=== PATIENT | female | born 1980 | race Caucasian/White ===

== ENCOUNTER 2018-01-06 22:01 | Emergency (ER) | payer OTHER ==
--- NOTE | 2018-01-06 22:01 | ER Report ---
History and Physical Time Seen By MD: 22:00 HPI/ROS CHIEF COMPLAINT: Abdominal pain, chest pain, shortness of breath HISTORY OF PRESENT ILLNESS: 36-year-old female who ate at [employer] one hour prior to onset of symptoms began to have severe cramping abdominal pain with vomiting. The severe abdominal pain pain radiates into her back and between her shoulder blades. She describes shortness of breath. She does have a history of asthma. She notes no diarrhea. She states she didn't eat anything raw or unusual for her to eat at [employer]. Patient states she was in her usual state of health until before going to [employer]. REVIEW OF SYSTEMS: Respiratory: As above Cardiovascular: As above Gastrointestinal: As above Musculoskeletal: As above Allergies: Coded Allergies: Penicillins (Verified Allergy, Intermediate, RASH, 01/07/18) Home Meds Active Scripts Cefuroxime Axetil (CEFUROXIME) 500 Mg Tablet, 500 MG PO BID for infection, #14 TAB Prov:WYATT GAO Eris DO 01/06/18 Ondansetron (ZOFRAN ODT) 4 Mg Tab.rapdis, 4 MG PO every 6 hours Y for NAUSEA/ VOMITING, #10 TAB TAKE 1 TABLET BY MOUTH EVERY 12 HOURS Prov:WYATT GAO DO 01/06/18 Hydrocodone Bit/Acetaminophen (NORCO 5-325 TABLET) 1 Each Tablet, 1 EACH PO Q4H Y for PAIN, #8 TAB Prov:WYATT GAO DO 01/06/18 Reported Medications Diphenhydramine Hcl (DIPHENHYDRAMINE HCL) 25 Mg Capsule, 25 MG PO Q6-8H, CAPSULE 01/07/18 Multivitamin/Iron/Folic Acid (Centrum Adults Tablet) 18 Mg Iron-400 Mcg Tablet, 1 TAB PO QDAY 01/07/18 Ipratropium/Albuterol Sulfate (COMBIVENT RESPIMAT INHAL SPRAY) 4 Gm Aer.w.adap, 1 EACH IH QID Y for SHORTNESS OF BREATH 01/07/18 Ibuprofen (MOTRIN IB) 200 Mg Tablet, 3 TAB PO BID 01/07/18 Ranitidine Hcl (ZANTAC) 150 Mg Tablet, 150 MG PO BID, TAB 01/06/18 Escitalopram Oxalate (ESCITALOPRAM OXALATE) 10 Mg Tablet, 10 MG PO QDAY, TAB 01/06/18 Cetirizine Hcl (ZYRTEC) 10 Mg Tablet, 10 MG PO QDAY, TAB 01/06/18 Zolpidem Tartrate (AMBIEN) 10 Mg Tablet, 1 TAB PO QHS, TAB 01/06/18 Bupropion Hcl (BUPROPION HCL SR) 150 Mg Tablet.er, 150 MG PO QDAY, #10 TAB 01/06/18 Clonazepam (CLONAZEPAM) 0.5 Mg Tab.rapdis, 0.5 MG PO BID, #6 TAB 01/06/18 Norgestimate-Ethinyl Estradiol (MONONESSA) 1 Each Tablet, 1 EACH PO QDAY 01/06/18 Discontinued Reported Medications Ipratropium/Albuterol Sulfate (COMBIVENT RESPIMAT INHAL SPRAY) 4 Gm Aer.w.adap, 1 EACH IH QID 01/06/18 Fluticasone Prop 50 Mcg Ns (FLONASE 50 MCG NS) 16 Gm [place].susp, 1 SPRAY NS BID , BOT 01/06/18 Cyclobenzaprine Hcl (CYCLOBENZAPRINE HCL) 10 Mg Tablet, 10 MG PO TID, #9 TAB 01/06/18 Reviewed Nurses Notes: Yes Old Medical Records Reviewed: Yes Constitutional Vital Sign - Last 24 Hours 01/06/18 01/06/18 01/06/18 01/06/18 22:03 22:04 22:16 22:31 Temp 97.9 Pulse 82 81 76 Resp 26 B/P (MAP) 131/96 131/96 (108) Pulse Ox 90 96 93 O2 Delivery Room Air 01/06/18 01/06/18 01/06/18 01/06/18 22:46 22:51 22:56 23:11 Pulse 82 73 70 69 Pulse Ox 88 95 90 94 01/06/18 01/06/18 01/07/18 23:27 23:41 00:12 Pulse 73 85 Resp 16 B/P (MAP) 117/73 (88) 115/72 (86) Pulse Ox 90 92 O2 Delivery Room Air Physical Exam General Appearance: The patient is alert, has no immediate need for airway protection and no current signs of toxicity.. Moderate distress, vital signs stable, increased respiratory rate HEENT: Pupils equal and round no injection. TMs normal, oropharynx without redness or exudate, mucous. Membranes are moist Respiratory: Chest is non tender, lungs are clear to auscultation. Cardiac: regular rate and rhythm Gastrointestinal: Abdomen is soft mild epigastric tenderness, no rebound or guarding, no masses, bowel sounds normal. Musculoskeletal: Neck: Neck is supple and non tender. Extremities have full range of motion and are non tender. Skin: No rashes or lesions. DIFFERENTIAL DIAGNOSIS: After history and physical exam differential diagnosis was considered for abdominal pain including but not limited to appendicitis, cholecystitis, gastritis , gastroenteritis, food poisoning, viral syndrome and urinary tract infection. Medical Decision Making Data Points Result Diagram: 01/06/18221901/06/182219 Laboratory Hematology Test 01/06/18 22:20 01/06/18 23:25 Red Blood Count 4.89 M/uL (4.17-5.56) Mean Corpuscular Volume 89.1 fL (80.0-96.0) Mean Corpuscular Hemoglobin 30.8 pg (26.0-33.0) Mean Corpuscular Hemoglobin Concent 34.6 g/dL (32.0-36.0) Red Cell Distribution Width 12.3 % (11.5-14.5) Mean Platelet Volume 8.7 fL (7.2-11.1) Neutrophils (%) (Auto) 60.9 % (39.4-72.5) Lymphocytes (%) (Auto) 29.7 % (17.6-49.6) Monocytes (%) (Auto) 6.7 % (4.1-12.4) Eosinophils (%) (Auto) 1.6 % (0.4-6.7) Basophils (%) (Auto) 1.1 % (0.3-1.4) Nucleated RBC Relative Count (auto) 0.1 /100WBC Neutrophils # (Auto) 6.1 K/uL (2.0-7.4) Lymphocytes # (Auto) 3.0 K/uL (1.3-3.6) Monocytes # (Auto) 0.7 K/uL (0.3-1.0) Eosinophils # (Auto) 0.2 K/uL (0.0-0.5) Basophils # (Auto) 0.1 K/uL (0.0-0.1) Nucleated RBC Absolute Count (auto) 0.01 K/uL D-Dimer Quantitative (PE/DVT) 0.27 ug/ml (0-0.50) Sodium Level 141 mmol/L (137-145) Potassium Level 3.5 mmol/L (3.5-5.0) Chloride Level 106 mmol/L (98-107) Carbon Dioxide Level 23 mmol/L (22-31) Blood Urea Nitrogen 11 mg/dl (7-18) Creatinine 0.80 mg/dl (0.52-1.04) Glomerular Filtration Rate Calc > 60.0 Random Glucose 121 mg/dl (75-110) Calcium Level 9.3 mg/dl (8.4-10.2) Total Bilirubin 0.3 mg/dl (0.2-1.3) Aspartate Amino Transf (AST/SGOT) 59 U/L (0-35) Alanine Aminotransferase (ALT/SGPT) 37 U/L (0-56) Alkaline Phosphatase 91 U/L (0-126) Troponin I < 0.012 ng/ml Total Protein 7.0 gm/dl (6.3-8.2) Albumin 3.8 g/dl (3.5-5.0) Amylase Level 84 U/L (0-110) Lipase 238 U/L (23-300) Human Chorionic Gonadotropin, Qual Negative (NEGATIVE) Urine Color Yellow Urine Clarity Cloudy Urine pH 5.0 pH (4.8-9.5) Urine Specific [place] 1.019 Urine Protein Negative mg/dL (NEGATIVE) Urine Glucose (UA) Negative mg/dL (NEGATIVE) Urine Ketones Negative mg/dL (NEGATIVE) Urine Blood Negative (NEGATIVE) Urine Nitrite Negative (NEGATIVE) Urine Bilirubin Negative (NEGATIVE) Urine Urobilinogen Negative mg/dL (0.2-1.9) Urine Leukocyte Esterase Moderate (NEGATIVE) Urine RBC 5 /HPF (0-2/HPF) Urine WBC 104 /HPF (0-5/HPF) Urine Squamous Epithelial Cells Many /LPF (</=FEW) Urine Transitional Epithelial Cells Many /LPF (NONE-FEW) Urine Bacteria Moderate /HPF (NONE-FEW) Urine Mucus Few /HPF (NONE-FEW) Chemistry Test 01/06/18 22:20 01/06/18 23:25 White Blood Count 10.1 k/uL (4.5-11.0) Red Blood Count 4.89 M/uL (4.17-5.56) Hemoglobin 15.1 g/dL (12.0-16.0) Hematocrit 43.6 % (34.0-47.0) Mean Corpuscular Volume 89.1 fL (80.0-96.0) Mean Corpuscular Hemoglobin 30.8 pg (26.0-33.0) Mean Corpuscular Hemoglobin Concent 34.6 g/dL (32.0-36.0) Red Cell Distribution Width 12.3 % (11.5-14.5) Platelet Count 262 K/uL (150-450) Mean Platelet Volume 8.7 fL (7.2-11.1) Neutrophils (%) (Auto) 60.9 % (39.4-72.5) Lymphocytes (%) (Auto) 29.7 % (17.6-49.6) Monocytes (%) (Auto) 6.7 % (4.1-12.4) Eosinophils (%) (Auto) 1.6 % (0.4-6.7) Basophils (%) (Auto) 1.1 % (0.3-1.4) Nucleated RBC Relative Count (auto) 0.1 /100WBC Neutrophils # (Auto) 6.1 K/uL (2.0-7.4) Lymphocytes # (Auto) 3.0 K/uL (1.3-3.6) Monocytes # (Auto) 0.7 K/uL (0.3-1.0) Eosinophils # (Auto) 0.2 K/uL (0.0-0.5) Basophils # (Auto) 0.1 K/uL (0.0-0.1) Nucleated RBC Absolute Count (auto) 0.01 K/uL D-Dimer Quantitative (PE/DVT) 0.27 ug/ml (0-0.50) Glomerular Filtration Rate Calc > 60.0 Calcium Level 9.3 mg/dl (8.4-10.2) Total Bilirubin 0.3 mg/dl (0.2-1.3) Aspartate Amino Transf (AST/SGOT) 59 U/L (0-35) Alanine Aminotransferase (ALT/SGPT) 37 U/L (0-56) Alkaline Phosphatase 91 U/L (0-126) Troponin I < 0.012 ng/ml Total Protein 7.0 gm/dl (6.3-8.2) Albumin 3.8 g/dl (3.5-5.0) Amylase Level 84 U/L (0-110) Lipase 238 U/L (23-300) Human Chorionic Gonadotropin, Qual Negative (NEGATIVE) Urine Color Yellow Urine Clarity Cloudy Urine pH 5.0 pH (4.8-9.5) Urine Specific [place] 1.019 Urine Protein Negative mg/dL (NEGATIVE) Urine Glucose (UA) Negative mg/dL (NEGATIVE) Urine Ketones Negative mg/dL (NEGATIVE) Urine Blood Negative (NEGATIVE) Urine Nitrite Negative (NEGATIVE) Urine Bilirubin Negative (NEGATIVE) Urine Urobilinogen Negative mg/dL (0.2-1.9) Urine Leukocyte Esterase Moderate (NEGATIVE) Urine RBC 5 /HPF (0-2/HPF) Urine WBC 104 /HPF (0-5/HPF) Urine Squamous Epithelial Cells Many /LPF (</=FEW) Urine Transitional Epithelial Cells Many /LPF (NONE-FEW) Urine Bacteria Moderate /HPF (NONE-FEW) Urine Mucus Few /HPF (NONE-FEW) Coagulation Test 01/06/18 22:20 D-Dimer Quantitative (PE/DVT) 0.27 ug/ml Urinalysis Test 01/06/18 23:25 Urine Color Yellow Urine Clarity Cloudy Urine pH 5.0 pH (4.8-9.5) Urine Specific [place] 1.019 Urine Protein Negative mg/dL (NEGATIVE) Urine Glucose (UA) Negative mg/dL (NEGATIVE) Urine Ketones Negative mg/dL (NEGATIVE) Urine Blood Negative (NEGATIVE) Urine Nitrite Negative (NEGATIVE) Urine Bilirubin Negative (NEGATIVE) Urine Urobilinogen Negative mg/dL (0.2-1.9) Urine Leukocyte Esterase Moderate (NEGATIVE) Urine RBC 5 /HPF (0-2/HPF) Urine WBC 104 /HPF (0-5/HPF) Urine Squamous Epithelial Cells Many /LPF (</=FEW) Urine Transitional Epithelial Cells Many /LPF (NONE-FEW) Urine Bacteria Moderate /HPF (NONE-FEW) Urine Mucus Few /HPF (NONE-FEW) Microbiology Microbiology Date/Time Source Procedure Growth Status 01/06/18 00:00 Clean Catch Midstream Ur Urine Culture - Preliminary Gram Negative Jd Resulted EKG/Imaging EKG Interpretation 12 lead EK Rhythm: normal sinus rhythm [place]: normal QRS: normal ST segments: normal, no evidence of ischemia or dysrhythmia ED Course/Re-evaluation Clinical Indication for ER IV: Hydration, IV Access ED Course Patient was admitted to an examination room. H&P was done. The differential diagnoses was considered. On clinical examination. Patient brought in by ambulance complaining of severe epigastric and back pain. She is having difficulty breathing. She does have a history of asthma. She seems better after the nebulizer by EMS. She still seems quite uncomfortable. Diagnostic studies are ordered. Patient's treated with IV fluid hydration and Zofran and fentanyl 50 g. On reevaluation she still has significant discomfort. Morphine 2 mg is administered. Her urinalysis shows infection. Remainder of her diagnostic studies are unremarkable. She'll be treated with Ceftin for urinary tract infection. She is advised clear liquid diet for 24 hours. She is given prescriptions for Zofran and hydrocodone. Decision to Disposition Date: Jan 06, 2018 Decision to Disposition Time: 23:25 Depart Departure Latest Vital Signs Vital Signs Date Time Temp Pulse Resp B/P (MAP) Pulse Ox O2 Delivery O2 Flow Rate FiO2 01/07/18 00:12 85 16 115/72 (86) 92 Room Air 01/06/18 22:03 97.9 Impression: Primary Impression: Abdominal pain Additional Impressions: Food poisoning History of asthma UTI (urinary tract infection) Condition: Improved Disposition: HOME OR SELF-CARE New Scripts Cefuroxime Axetil (CEFUROXIME) 500 Mg Tablet 500 MG PO BID for infection, #14 TAB Prov: WYATT GAO DO 01/06/18 Ondansetron (ZOFRAN ODT) 4 Mg Tab.rapdis 4 MG PO every 6 hours Y for NAUSEA/VOMITING, #10 TAB TAKE 1 TABLET BY MOUTH EVERY 12 HOURS Prov: WYATT GAO DO 01/06/18 Hydrocodone Bit/Acetaminophen (NORCO 5-325 TABLET) 1 Each Tablet 1 EACH PO Q4H Y for PAIN, #8 TAB Prov: WYATT GAO DO 01/06/18 Patient Instructions: Clear Liquid Diet (ED), Food Poisoning (ED) Additional Instructions: Follow clear liquid diet for 24 hours, then advance to [place] diet, bananas, rice , applesauce and toast Use medication to control your symptoms Follow-up with your primary care if unimproved in 3-5 days. Problem Qualifiers Primary Impression: Abdominal pain Abdominal location: epigastric Qualified Codes: R10.13 - Epigastric pain Additional Impressions: Food poisoning Encounter type: initial encounter Injury intent: accidental or unintentional Qualified Codes: T62.91XA - Toxic effect of unspecified noxious substance eaten as food, accidental (unintentional), initial encounter UTI (urinary tract infection) Urinary tract infection type: acute cystitis Hematuria presence: without hematuria Qualified Codes: N30.00 - Acute cystitis without hematuria WYATT GAO DO Jan 06, 2018 22:01
[2018-01-06] MEDS ORDERED: NS(*) 0.9% 1000 ML BAG 1,000 ML IV ONE (22:06)
[2018-01-06] MEDS ORDERED: ONDANSETRON 4 MG/2 ML VIAL IVP ONE (22:10)
[2018-01-06] MEDS ORDERED: fentaNYL CITR 100 MCG/2 ML AMP IVP ONE (22:10)
[2018-01-06 22:32] LABS: PLATELET COUNT, AUTOMATED 262 K/uL (150-450)
[2018-01-06] MEDS ORDERED: NORG1TAB97 PO (22:37)
[2018-01-06] MEDS ORDERED: CYCL10TA29 PO (22:37)
[2018-01-06] MEDS ORDERED: CLON-388 PO (22:38)
[2018-01-06] MEDS ORDERED: IPRA4AER IH (22:39)
[2018-01-06] MEDS ORDERED: FLUT16SP19 NS (22:39)
[2018-01-06] MEDS ORDERED: BUPR-156 PO (22:40)
[2018-01-06] MEDS ORDERED: CETI-176 PO (22:41)
[2018-01-06] MEDS ORDERED: ZOLP-350 PO (22:41)
--- NOTE | 2018-01-06 22:41 | EKG ---
FACILITY: [facility] - [place] PATIENT NAME: LOUIS DUKES : [id number] MR: [id number] V: [id number] EXAM DATE: ORDERING PHYSICIAN: WYATT GAO TECHNOLOGIST: Javier Rosales Reason : Blood Pressure : / mmHG Vent. Rate : 076 BPM Atrial Rate : 076 BPM P-R Int : 162 ms QRS Dur : 082 ms QT Int : 418 ms P-R-T Axes : 040 050 023 degrees QTc Int : 470 ms Normal sinus rhythm T flattening consistent with inferior ischemia vs normal variant No previous ECGs available Confirmed by NIKKI MAYERS ([id number]) on 01/07/2018 6:26:43 AM Referred By: Confirmed By:NIKKI MAYERS
[2018-01-06] MEDS ORDERED: ESCI10TA8 PO (22:42)
[2018-01-06] MEDS ORDERED: RANI-366 PO (22:42)
[2018-01-06] MEDS ORDERED: MORPHINE 2 MG/ML SYR IVP ONE (22:55)
[2018-01-06] MEDS ORDERED: HYDR-4309 PO (23:29)
[2018-01-06] MEDS ORDERED: ONDA4TAB PO (23:29)
[2018-01-06] MEDS ORDERED: ONDANSETRON 4 MG ODT TH SL ONE (23:50)
[2018-01-06] MEDS ORDERED: ACET/HYDROC 5/325MG TH ER ONLY 2 TAB/BOTTLE PO ONE (23:50)
[2018-01-06] MEDS ORDERED: CEFUROXIME AXETIL 250 MG TAB PO ONE (23:50)
[2018-01-06] MEDS ORDERED: CEFU500T10 PO (23:54)
[2018-01-07 00:12] VITALS: BP 115/72
[2018-01-07] MEDS ORDERED: IBUP-1671 PO (11:55)
[2018-01-07] MEDS ORDERED: MULT-67 PO (11:55)
[2018-01-07] MEDS ORDERED: DIPH-464 PO (11:55)
[2018-01-07] MEDS ORDERED: IPRA4AER IH (11:55)
== END 2018-01-07 00:18 | disposition home or self-care (01) ==
LOC: ER 22:15
DX: N30.00 Acute cystitis without hematuria (principal); T62.91XA Toxic effect of unspecified noxious substance eaten as food, accidental (unintentional), initial encounter; J45.909 Unspecified asthma, uncomplicated; B96.20 Unspecified Escherichia coli [E. coli] as the cause of diseases classified elsewhere
CPT/HCPCS: 81001; 82150; 83690; 84484; 84703; 85025; 85379; 87077; 87088; 87186; 93005; 99283; J2270; J2405; J3010; J7030; S0119; 82040; 82247; 82310; 82374; 82435; 82565; 82947; 84075; 84132; 84155; 84295; 84450; 84460; 84520

== ENCOUNTER → 2018-01-06 | Outpatient (CLI) | payer OTHER ==
[~2018-01-06] MED LIST: BUPR-156 PO; CEFU500T10 PO; CETI-176 PO; CLON-388 PO; CYCL10TA29 PO; DIPH-464 PO; ESCI10TA8 PO; FLUT16SP19 NS; HYDR-4309 PO; IBUP-1671 PO; IPRA4AER IH; KET10 PO; MULT-67 PO; NORG1TAB97 PO; ONDA4TAB PO; RANI-366 PO; ZOLP-350 PO
[2018-01-07 11:57] VITALS: BMI 35.4
== END ==
LOC: AMB 21:38
PROVIDERS: ATTEND Nurse Practitioner
DX: R06.02 Shortness of breath (principal)
CPT/HCPCS: A0425; A0427

== ENCOUNTER 2018-01-07 07:46 | Inpatient (IN) | payer OTHER ==
[~2018-01-07] VITALS: Ht 160 cm; Wt 93.1 kg
[~2018-01-07 07:46] MED LIST changes: -DIPH-464 PO; -IBUP-1671 PO; -KET10 PO; -MULT-67 PO
--- NOTE | 2018-01-07 07:50 | ER Report ---
History and Physical Time Seen By MD: 07:48 HPI/ROS CHIEF COMPLAINT: Dyspnea HISTORY OF PRESENT ILLNESS: Patient is a 37-year-old female with past medical history for asthma who was seen in the emergency department yesterday evening complaining of abdominal pain after eating [employer]. She was found to have lupus and bacteria on her urinalysis was started on cephalexin for UTI. As well as Zofran and pain medication for abdominal pain. She returns to the emergency department today complaining of shortness of breath. Patient states she used her inhaler just prior to arrival to the emergency department. She states that the shortness of breath is feeling better but she is feeling cramping along her upper abdomen as well as along her rib cage. She denies any diarrhea she states that she only vomited last night. REVIEW OF SYSTEMS: Constitutional: No fever, no chills. Eyes: No discharge. ENT: No sore throat. Cardiovascular: No chest pain, no palpitations. Respiratory: Dyspnea, no cough Gastrointestinal: Epigastric abdominal cramping with nausea and vomiting last evening reports no diarrhea Genitourinary: No hematuria. Musculoskeletal: No back pain. Skin: No rashes. Neurological: No headache. Allergies: Coded Allergies: Penicillins (Verified Allergy, Intermediate, RASH, 01/07/18) Home Meds Active Scripts Cefuroxime Axetil (CEFUROXIME) 500 Mg Tablet, 500 MG PO BID for infection, #14 TAB Prov:WYATT GAO DO 01/06/18 Ondansetron (ZOFRAN ODT) 4 Mg Tab.rapdis, 4 MG PO every 6 hours Y for NAUSEA/ VOMITING, #10 TAB TAKE 1 TABLET BY MOUTH EVERY 12 HOURS Prov:WYATT GAO DO 01/06/18 Hydrocodone Bit/Acetaminophen (NORCO 5-325 TABLET) 1 Each Tablet, 1 EACH PO Q4H Y for PAIN, #8 TAB Prov:WYATT GAO DO 01/06/18 Reported Medications Diphenhydramine Hcl (DIPHENHYDRAMINE HCL) 25 Mg Capsule, 25 MG PO Q6-8H, CAPSULE 01/07/18 Multivitamin/Iron/Folic Acid (Centrum Adults Tablet) 18 Mg Iron-400 Mcg Tablet, 1 TAB PO QDAY 01/07/18 Ipratropium/Albuterol Sulfate (COMBIVENT RESPIMAT INHAL SPRAY) 4 Gm Aer.w.adap, 1 EACH IH QID Y for SHORTNESS OF BREATH 01/07/18 Ibuprofen (MOTRIN IB) 200 Mg Tablet, 3 TAB PO BID 01/07/18 Ranitidine Hcl (ZANTAC) 150 Mg Tablet, 150 MG PO BID, TAB 01/06/18 Escitalopram Oxalate (ESCITALOPRAM OXALATE) 10 Mg Tablet, 10 MG PO QDAY, TAB 01/06/18 Cetirizine Hcl (ZYRTEC) 10 Mg Tablet, 10 MG PO QDAY, TAB 01/06/18 Zolpidem Tartrate (AMBIEN) 10 Mg Tablet, 1 TAB PO QHS, TAB 01/06/18 Bupropion Hcl (BUPROPION HCL SR) 150 Mg Tablet.er, 150 MG PO QDAY, #10 TAB 01/06/18 Clonazepam (CLONAZEPAM) 0.5 Mg Tab.rapdis, 0.5 MG PO BID, #6 TAB 01/06/18 Norgestimate-Ethinyl Estradiol (MONONESSA) 1 Each Tablet, 1 EACH PO QDAY 01/06/18 Discontinued Reported Medications Ipratropium/Albuterol Sulfate (COMBIVENT RESPIMAT INHAL SPRAY) 4 Gm Aer.w.adap, 1 EACH IH QID 01/06/18 Fluticasone Prop 50 Mcg Ns (FLONASE 50 MCG NS) 16 Gm [place].susp, 1 SPRAY NS BID , BOT 01/06/18 Cyclobenzaprine Hcl (CYCLOBENZAPRINE HCL) 10 Mg Tablet, 10 MG PO TID, #9 TAB 01/06/18 Past Medical/Surgical History History of asthma history of GERD Hx Substance Use Disorder: No Hx Alcohol Use: No Constitutional Vital Sign - Last 24 Hours 01/07/18 01/07/18 01/07/18 01/07/18 07:50 07:50 08:00 08:16 Temp 97.9 Pulse 73 65 Resp 20 11 B/P (MAP) 117/106 (110) 117/106 102/61 (75) Pulse Ox 97 100 O2 Delivery Room Air 01/07/18 01/07/18 01/07/18 01/07/18 08:30 08:46 08:51 09:00 Pulse 71 62 Resp 10 10 B/P (MAP) 111/55 (73) 107/64 (78) Pulse Ox 95 94 401/07/18 01/07/18 01/07/18 09:21 09:30 09:51 10:00 Pulse 55 82 Resp 18 15 B/P (MAP) 120/75 (90) 107/54 (71) Pulse Ox 96 89 01/07/18 01/07/18 01/07/18 10:29 10:34 11:00 Pulse 68 B/P (MAP) 115/83 (94) 115/78 (90) Pulse Ox 96 Intake and Output 01/07/18 01/07/18 01/08/18 15:00 23:00 07:00 Intake Total 1050 ml Balance 1050 ml Physical Exam General/Constitutional: Patient is awake, alert, nontoxic and in no acute respiratory distress. Head: Normocephalic and atraumatic. Eyes: Conjunctival clear, sclera anicteric Nares: No rhinorrhea or bleeding. Oropharyngeal: Mucous membranes are moist. Neck: Supple, no adenopathy. Cardiovascular: Heart is regular rate and rhythm without audible murmurs, rubs or gallops. Pulmonary: Lungs are clear to auscultation bilaterally. There are no wheezes, rales, or rhonchi. Chest rise is symmetrical Abdomen: Soft, nontender, no guarding or peritoneal signs. Extremities: No gross deformities, No peripheral cyanosis. Able to move all 4 extremities. Neuro: Alert and oriented X3, Skin: No rashes, skin is warm dry and well perfused. Medical Decision Making Data Points Result Diagram: 01/07/18 0816 01/07/18 0816 Laboratory Hematology Test 01/07/18 08:16 Red Blood Count 4.72 M/uL (4.17-5.56) Mean Corpuscular Volume 89.2 fL (80.0-96.0) Mean Corpuscular Hemoglobin 31.8 pg (26.0-33.0) Mean Corpuscular Hemoglobin Concent 35.7 g/dL (32.0-36.0) Red Cell Distribution Width 12.4 % (11.5-14.5) Mean Platelet Volume 8.9 fL (7.2-11.1) Neutrophils (%) (Auto) 71.9 % (39.4-72.5) Lymphocytes (%) (Auto) 18.2 % (17.6-49.6) Monocytes (%) (Auto) 8.1 % (4.1-12.4) Eosinophils (%) (Auto) 1.2 % (0.4-6.7) Basophils (%) (Auto) 0.6 % (0.3-1.4) Nucleated RBC Relative Count (auto) 0.0 /100WBC Neutrophils # (Auto) 7.9 K/uL (2.0-7.4) Lymphocytes # (Auto) 2.0 K/uL (1.3-3.6) Monocytes # (Auto) 0.9 K/uL (0.3-1.0) Eosinophils # (Auto) 0.1 K/uL (0.0-0.5) Basophils # (Auto) 0.1 K/uL (0.0-0.1) Nucleated RBC Absolute Count (auto) 0.00 K/uL Sodium Level 144 mmol/L (137-145) Potassium Level 3.2 mmol/L (3.5-5.0) Chloride Level 107 mmol/L (98-107) Carbon Dioxide Level 20 mmol/L (22-31) Blood Urea Nitrogen 7 mg/dl (7-18) Creatinine 0.70 mg/dl (0.52-1.04) Glomerular Filtration Rate Calc > 60.0 Random Glucose 109 mg/dl (75-110) Calcium Level 8.9 mg/dl (8.4-10.2) Total Bilirubin 0.5 mg/dl (0.2-1.3) Aspartate Amino Transf (AST/SGOT) 100 U/L (0-35) Alanine Aminotransferase (ALT/SGPT) 70 U/L (0-56) Alkaline Phosphatase 76 U/L (0-126) Total Protein 6.8 gm/dl (6.3-8.2) Albumin 3.7 g/dl (3.5-5.0) Lipase 41078 U/L (23-300) Human Chorionic Gonadotropin, Qual Negative (NEGATIVE) Chemistry Test 01/07/18 08:16 White Blood Count 11.0 k/uL (4.5-11.0) Red Blood Count 4.72 M/uL (4.17-5.56) Hemoglobin 15.0 g/dL (12.0-16.0) Hematocrit 42.1 % (34.0-47.0) Mean Corpuscular Volume 89.2 fL (80.0-96.0) Mean Corpuscular Hemoglobin 31.8 pg (26.0-33.0) Mean Corpuscular Hemoglobin Concent 35.7 g/dL (32.0-36.0) Red Cell Distribution Width 12.4 % (11.5-14.5) Platelet Count 244 K/uL (150-450) Mean Platelet Volume 8.9 fL (7.2-11.1) Neutrophils (%) (Auto) 71.9 % (39.4-72.5) Lymphocytes (%) (Auto) 18.2 % (17.6-49.6) Monocytes (%) (Auto) 8.1 % (4.1-12.4) Eosinophils (%) (Auto) 1.2 % (0.4-6.7) Basophils (%) (Auto) 0.6 % (0.3-1.4) Nucleated RBC Relative Count (auto) 0.0 /100WBC Neutrophils # (Auto) 7.9 K/uL (2.0-7.4) Lymphocytes # (Auto) 2.0 K/uL (1.3-3.6) Monocytes # (Auto) 0.9 K/uL (0.3-1.0) Eosinophils # (Auto) 0.1 K/uL (0.0-0.5) Basophils # (Auto) 0.1 K/uL (0.0-0.1) Nucleated RBC Absolute Count (auto) 0.00 K/uL Glomerular Filtration Rate Calc > 60.0 Calcium Level 8.9 mg/dl (8.4-10.2) Total Bilirubin 0.5 mg/dl (0.2-1.3) Aspartate Amino Transf (AST/SGOT) 100 U/L (0-35) Alanine Aminotransferase (ALT/SGPT) 70 U/L (0-56) Alkaline Phosphatase 76 U/L (0-126) Total Protein 6.8 gm/dl (6.3-8.2) Albumin 3.7 g/dl (3.5-5.0) Lipase 20370 U/L (23-300) Human Chorionic Gonadotropin, Qual Negative (NEGATIVE) EKG/Imaging Imaging Gallbladder ultrasound shows cholelithiasis without evidence of cholecystitis. No ductal dilatation is noted EXAM DATE: ORDERING PHYSICIAN: DEVI URRUTIA TECHNOLOGIST: Location: [facility] - [place] Patient: Mariposa Juarez : 1980 Visit/Account:[id number] Date of Sevice: 01/07/2018 ABDOMEN W W/O CONTRAST HISTORY: pancreatitis Additional history: Markedly elevated lipase TECHNIQUE: Axial imaging performed from the lung bases to the iliac crest with and without IV contrast. Coronal and sagittal reformatting also performed. One of the following dose optimization techniques was utilized in the performance of this exam: Automated exposure control; adjustment of the mA and/or kV according to the patient's size; or use of an iterative reconstruction technique. Specific details can be referenced in the facility's radiology CT exam operational policy. Contrast: 100 mL [id number] COMPARISON: Right upper quadrant ultrasound same date which demonstrated cholelithiasis but no biliary duct dilatation. Pancreas unremarkable by ultrasound. FINDINGS: Visualized lung bases: Negative. Hepatobiliary: Liver appears normal. Multiple small stones are seen in the gallbladder which is nondistended. There is no evidence of biliary ductal distention. No intraductal stones are identified. CT, however, is relatively insensitive for gallstones. Spleen: Negative. Adrenals: Negative. Pancreas: The pancreas demonstrates homogenous enhancement. Despite labs indicating pancreatitis there are no morphologic changes and there is no evidence of peripancreatic fat stranding or peripancreatic fluid. Kidneys and visualized portion of ureters: Negative. Visualized GI: Visualized portions of the GI tract normal. Vessels/spaces/nodes: Negative. Bones/soft tissues: Negative. Additional findings: None pertinent. IMPRESSION: Cholelithiasis. Examination otherwise unremarkable. Despite labs consistent with pancreatitis and there is no evidence of morphologic changes and pancreas demonstrates normal parenchymal enhancement. Report Dictated By: Baudilio Paniagua MD at 01/07/2018 10:40 AM Report E-Signed By: Baudilio Paniagua MD at 01/07/2018 10:50 AM ED Course/Re-evaluation Clinical Indication for ER IV: Hydration, IV Access ED Course Patient with abdominal cramping shortness of breath currently feels improved as patient took her inhaler just prior to arrival. Plan at this time will be IV hydration we will recheck blood work including CBC CMP and lipase. We will give him sit IV along with Bentyl for antispasmodic effects. 01/07/2018 10:36:59 am patient with elevation in LFTs and lipase from yesterday. Lipase is risen from 259 to just over 13,000. Plan at this time will be gallbladder ultrasound and CT scan of the abdomen with and without contrast to evaluate the pancreas. Patient will be kept nothing by mouth. Patient feeling somewhat improved but still having epigastric discomfort with deep inspiration Re-evaluation 01/07/2018 8:41:24 am patient reevaluated nausea has improved she still feeling as if she "can't take a deep breath. White count is unremarkable; I am awaiting the remaining electrolytes. Decision to Disposition Date: Jan 07, 2018 Decision to Disposition Time: 11:08 Depart Departure Latest Vital Signs Vital Signs Date Time Temp Pulse Resp B/P (MAP) Pulse Ox O2 Delivery O2 Flow Rate FiO2 01/07/18 11:00 115/78 (90) 01/07/18 10:34 68 96 01/07/18 09:51 15 01/07/18 07:50 97.9 Room Air Impression: Primary Impression: Acute pancreatitis Condition: Condition Unchanged Disposition: Admitted from ER (to E[facility] Hager) Problem Qualifiers Primary Impression: Acute pancreatitis Pancreatitis type: unspecified pancreatitis type Acute pancreatitis complication: unspecified Qualified Codes: K85.90 - Acute pancreatitis without necrosis or infection, unspecified DEVI URRUTIA MD Jan 07, 2018 07:50
[2018-01-07] MEDS ORDERED: NS(*) 0.9% 1000 ML BAG 1,000 ML IV ONE (08:05)
[2018-01-07] MEDS ORDERED: DICYCLOMINE HCL 10 MG CAP PO ONE (08:05)
[2018-01-07] MEDS ORDERED: FAMOTIDINE(*) 20MG/50ML PREMIX 50 ML IVPB ONE (08:05)
[2018-01-07 08:28] LABS: PLATELET COUNT, AUTOMATED 244 K/uL (150-450)
[2018-01-07] MEDS ORDERED: IOPAMIDOL 76% 100 ML INFUS BTL 100 ML ONE (09:18)
[2018-01-07] MEDS ORDERED: NS 0.9% 150 ML BAG 150 ML ONE (09:19)
--- NOTE | 2018-01-07 10:30 | RADIOLOGY IMAGING REPORT ---
FACILITY: [facility] PATIENT NAME: Mariposa Juarez : 1980 MR: [id number] V: [id number] EXAM DATE: ORDERING PHYSICIAN: DEVI URRUTIA TECHNOLOGIST: Location: [facility] Patient: Mariposa Juarez : 1980 Visit/Account:[id number] Date of Sevice: 01/07/2018 GALLBLADDER HISTORY: ruq pain/elevated lft's ADDITIONAL HISTORY: Lipase 13,000 COMPARISON: None. FINDINGS: Liver: Negative. Gallbladder: Multiple stones are seen layering dependently in the gallbladder. Gallbladder wall is un remarkable. Negative sonographic Maxwell's sign. Common duct: 3.7 mm diameter. Pancreas: Pancreas is unremarkable in appearance. I would caution, however, the ultrasound is insensi tive for uncomplicated pancreatitis. Right kidney: 10.2 cm in length morphologically unremarkable. Upper abdominal aorta and IVC: Patent. Ascites: None visualized. IMPRESSION: Cholelithiasis without sonographic evidence of cholecystitis. No evidence of biliary ductal dilatatio n. Exam otherwise unremarkable. Report Dictated By: Baudilio Paniagua MD at 01/07/2018 10:21 AM Report E-Signed By: Baudilio Paniagua MD at 01/07/2018 10:25 AM WSN:[id number]
[2018-01-07] MEDS ORDERED: D5 1/2 NS(*) 1000 ML BAG 1,000 ML IV ONE (10:35)
--- NOTE | 2018-01-07 10:54 | RADIOLOGY IMAGING REPORT ---
FACILITY: [facility] [place] PATIENT NAME: Mariposa Juarez : 1980 MR: [id number] V: [id number] EXAM DATE: ORDERING PHYSICIAN: DEVI URRUTIA TECHNOLOGIST: Location: [facility] Patient: Mariposa Juarez : 1980 Visit/Account:[id number] Date of Sevice: 01/07/2018 ABDOMEN W W/O CONTRAST HISTORY: pancreatitis Additional history: Markedly elevated lipase TECHNIQUE: Axial imaging performed from the lung bases to the iliac crest with and without IV contr ast. Coronal and sagittal reformatting also performed. One of the following dose optimization techn iques was utilized in the performance of this exam: Automated exposure control; adjustment of the mA and/or kV according to the patient's size; or use of an iterative reconstruction technique. Specifi c details can be referenced in the facility's radiology CT exam operational policy. Contrast: 100 mL Isovue-370 COMPARISON: Right upper quadrant ultrasound same date which demonstrated cholelithiasis but no bilia ry duct dilatation. Pancreas unremarkable by ultrasound. FINDINGS: Visualized lung bases: Negative. Hepatobiliary: Liver appears normal. Multiple small stones are seen in the gallbladder which is nond istended. There is no evidence of biliary ductal distention. No intraductal stones are identified. CT , however, is relatively insensitive for gallstones. Spleen: Negative. Adrenals: Negative. Pancreas: The pancreas demonstrates homogenous enhancement. Despite labs indicating pancreatitis the re are no morphologic changes and there is no evidence of peripancreatic fat stranding or peripancrea tic fluid. Kidneys and visualized portion of ureters: Negative. Visualized GI: Visualized portions of the GI tract normal. Vessels/spaces/nodes: Negative. Bones/soft tissues: Negative. Additional findings: None pertinent. IMPRESSION: Cholelithiasis. Examination otherwise unremarkable. Despite labs consistent with pancreatitis and the re is no evidence of morphologic changes and pancreas demonstrates normal parenchymal enhancement. Report Dictated By: Baudilio Paniagua MD at 01/07/2018 10:40 AM Report E-Signed By: Baudilio Paniagua MD at 01/07/2018 10:50 AM WSN:[id number]
[2018-01-07 11:35] VITALS: BP 107/74
[2018-01-07] MEDS ORDERED: DIPH-464 PO (11:55)
[2018-01-07] MEDS ORDERED: IBUP-1671 PO (11:55)
[2018-01-07] MEDS ORDERED: MULT-67 PO (11:55)
[2018-01-07] MEDS ORDERED: IPRA4AER IH (11:55)
[2018-01-07 11:57] VITALS: Ht 160 cm; Wt 93.1 kg
--- NOTE | 2018-01-07 12:04 | Medical Nutrition Therapy ---
Nutrition Anthropometrics Height (Inches): 63.00 Height (Calculated Centimeters: 160.492471 Weight (Pounds): 200 Weight (Calculated Kilograms): 90.718 BMI Calculated: 35.42 Rm Nutrition Score: Rm Nutrition Risk Score: Dietary Referral Nutrition Risk Factors: Nutrition Risk Comment: Physical Findings Physical Appearance: Obese BMI 30-39 Skin Appearance Skin Appearance: Edema Edema Location Modifier: Edema Location: Type of Edema: Degree of Edema: Gastrointestinal Symptoms GI Symtoms: Tube Present: Bowel Sounds: Recent Bowel Pattern: Stool Characteristics: Nutrition/Food History No Significant Nutr. HX Nutritional Diagnosis Nutritional Risk Acuity 2: Pancreatitis Past Medical History: Asthma, GERD, PTSD Nutritional Acuity: 2-Moderate Nutrition Diagnosis: Altered GI Function Nutrition Etiology: Physiological Causes Nutrition Problem/Etiology/Sym: Altered Gastrointestinal (GI) Function related to compromised exocrine function of related GI organs, e.g., pancreas [place] [address] [place] admit. Energy Requirement: 2200 ([place] Landry-St Jeor: Actual BW X 1.4) Protein Requirement: 72 (Actual BW Kg X .8) Fluid Requirement: 2200 Diet Type: NPO (Nothing by Mouth) Nutrition Intervention: Incr diet as tolerated Nutrition Monitoring & Eval Nutrition Goals: Eat 50-100% Meal RD Patient Assessment Time: [address] Assessment Type: RD Assessment Patient Nutrition Acuity: 2-Moderate Follow Up Date: Jan 09, 2018 Nutritional Comment: Pt admitted for pancreatitis. Lipase 36021, High AST/ALT, Low K+/CO2. Class II obesity with BMI of 35.4. Pt NPO at present. Follow clinical progression and diet changes, labs, etc. MARISSA FRANCE Jan 07, 2018 12:04
[2018-01-07] MEDS ORDERED: NS(*) 0.9% 1000 ML BAG 1,000 ML IV PRN (12:29)
[2018-01-07] MEDS ORDERED: HYDROmorphone PCA 6 MG/30 ML IV PRN (12:30)
[2018-01-07] MEDS ORDERED: cefTRIAXone 1 GM VIAL IVP SCH (12:30)
[2018-01-07] MEDS ORDERED: LORazepam 2 MG/ML VIAL IVP PRN (12:30)
[2018-01-07] MEDS ORDERED: COMBIVENT 4 GR INHALER IH PRN (12:30)
--- NOTE | 2018-01-07 12:50 | History & Physical ---
History of Present Illness Chief Complaint Abdominal pain, nausea, and vomiting History of Present Illness 37yo female with PMHx significant for PTSD, depression, GERD, chronic back pain. She reports onset of upper abdominal pain with associated radiation into her mid-back and nausea with vomiting. She states it began shortly after eating tempura lobster at local [employer] restaurant. She was seen in the ER at that time and symptoms had improved. She was found to have probable UTI and started on oral Ceftin. She was sent home, but symptoms returned with even more severity within a few hours. She was re-evaluated and found to have elevated lipase ( normal earlier). Her CT scan did not show significant inflammatory changes at this time. No ductal dilation or common duct stone was seen. GB ultrasound was similar (cholelithiasis but no evidence of cholecystitis). She does not drink alcohol to any extent ("maybe once every 3 months") and none recently. She does recall a few similar, but less severe episodes over the past several years. She was recommended for admission. History Problems: (1) GERD (gastroesophageal reflux disease) Status: Chronic (2) PTSD (post-traumatic stress disorder) Status: Chronic (3) Chronic back pain (4) Depression Status: Chronic Home Meds Active Scripts Cefuroxime Axetil (CEFUROXIME) 500 Mg Tablet, 500 MG PO BID for infection, #14 TAB Prov:WYATT GAO DO 01/06/18 Ondansetron (ZOFRAN ODT) 4 Mg Tab.rapdis, 4 MG PO every 6 hours Y for NAUSEA/ VOMITING, #10 TAB TAKE 1 TABLET BY MOUTH EVERY 12 HOURS Prov:WYATT GAO 01/06/18 Hydrocodone Bit/Acetaminophen (NORCO 5-325 TABLET) 1 Each Tablet, 1 EACH PO Q4H Y for PAIN, #8 TAB Prov:WYATT GAO DO 01/06/18 Reported Medications Diphenhydramine Hcl (DIPHENHYDRAMINE HCL) 25 Mg Capsule, 25 MG PO Q6-8H, CAPSULE 01/07/18 Multivitamin/Iron/Folic Acid (Centrum Adults Tablet) 18 Mg Iron-400 Mcg Tablet, 1 TAB PO QDAY 01/07/18 Ipratropium/Albuterol Sulfate (COMBIVENT RESPIMAT INHAL SPRAY) 4 Gm Aer.w.adap, 1 EACH IH QID Y for SHORTNESS OF BREATH 01/07/18 Ibuprofen (MOTRIN IB) 200 Mg Tablet, 3 TAB PO BID 01/07/18 Ranitidine Hcl (ZANTAC) 150 Mg Tablet, 150 MG PO BID, TAB 01/06/18 Escitalopram Oxalate (ESCITALOPRAM OXALATE) 10 Mg Tablet, 10 MG PO QDAY, TAB 01/06/18 Cetirizine Hcl (ZYRTEC) 10 Mg Tablet, 10 MG PO QDAY, TAB 01/06/18 Zolpidem Tartrate (AMBIEN) 10 Mg Tablet, 1 TAB PO QHS, TAB 01/06/18 Bupropion Hcl (BUPROPION HCL SR) 150 Mg Tablet.er, 150 MG PO QDAY, #10 TAB 01/06/18 Clonazepam (CLONAZEPAM) 0.5 Mg Tab.rapdis, 0.5 MG PO BID, #6 TAB 01/06/18 Norgestimate-Ethinyl Estradiol (MONONESSA) 1 Each Tablet, 1 EACH PO QDAY 01/06/18 Discontinued Reported Medications Ipratropium/Albuterol Sulfate (COMBIVENT RESPIMAT INHAL SPRAY) 4 Gm Aer.w.adap, 1 EACH IH QID 01/06/18 Fluticasone Prop 50 Mcg Ns (FLONASE 50 MCG NS) 16 Gm Starks.susp, 1 SPRAY NS BID , BOT 01/06/18 Cyclobenzaprine Hcl (CYCLOBENZAPRINE HCL) 10 Mg Tablet, 10 MG PO TID, #9 TAB 01/06/18 Allergies: Coded Allergies: Penicillins (Verified Allergy, Intermediate, RASH, 01/07/18) Patient History: Hypertension MOTHER Other Social/Family Hx She lives with her significant other. No children. She receives disability through [employer] system. Hx Smoking: No Hx Alcohol Use: Yes (once every three months/none recently) Alcohol Used: Liquor Hx Substance Use Disorder: No Review of Systems Constitutional: No Fever, No Chills, No Night Sweats Neurological: No Syncope, No Confusion, No Weakness Eyes: No Vision Change, No Loss of Vision ENT: No Hearing Loss, No Sinus Congestion, No Sore Throat Cardiovascular: No Chest Pain, No Palpitations, No Orthostatic Hypotension Respiratory: No Shortness of Breath, No Cough, No Wheezing Gastrointestinal: Nausea, Vomiting, Diarrhea, No Hematemesis, Hematochezia (a bloody stool several days ago - returned to normal) Genitourinary: No Dysuria, No Hematuria Musculoskeletal: Pain Psychiatric: Depression, Anxiety Exam Vital Signs Vital Signs Date Time Temp Pulse Resp B/P (MAP) Pulse Ox O2 Delivery O2 Flow Rate FiO2 01/07/18 11:35 98.1 54 16 107/74 (85) 94 Room Air General Appearance: Alert, Awake Neuro: No Gross deficits Eyes: PERRLA, Other (sclera anicteric) ENT: Oropharynx Clear Neck: No Masses Cardiovascular: Regular Rate and Rhythm, No Edema, No JVD Respiratory: Clear to Auscultation Chest: No Tenderness GI: Other (soft/BS present/tender over upper abdomen/no guarding or rebound) : No CVA Tenderness Lymph: No Adenopathy Extremities: Warm, Perfused Integumentary: Skin Intact without Lesion / Mass Psych: Alert & Oriented X3 Medical Decision Making Data Points Result Diagram: 01/07/18 0816 01/07/18 0816 Item Value Date Time Human Chorionic Gonadotropin, Qual Negative 01/07/18 0816 Lipase 81600 U/L H 01/07/18 0816 Albumin 3.7 g/dl 01/07/18 0816 Total Protein 6.8 gm/dl 01/07/18 0816 Alkaline Phosphatase 76 U/L 01/07/18 0816 Alanine Aminotransferase (ALT/SGPT) 70 U/L H 01/07/18 0816 Aspartate Amino Transf (AST/SGOT) 100 U/L H 01/07/18 0816 Total Bilirubin 0.5 mg/dl 01/07/18 0816 Calcium Level 8.9 mg/dl 01/07/18 0816 Troponin I < 0.012 ng/ml 01/06/18 2220 Lipase 238 U/L 01/06/18 2220 Amylase Level 84 U/L 01/06/18 2220 Albumin 3.8 g/dl 01/06/18 2220 Total Protein 7.0 gm/dl 01/06/18 2220 Alkaline Phosphatase 91 U/L 01/06/18 2220 Alanine Aminotransferase (ALT/SGPT) 37 U/L 01/06/18 2220 Aspartate Amino Transf (AST/SGOT) 59 U/L H 01/06/18 2220 Total Bilirubin 0.3 mg/dl 01/06/18 2220 Calcium Level 9.3 mg/dl 01/06/182219 D-Dimer Quantitative (PE/DVT) 0.27 ug/ml 01/06/182219 Urine Color Yellow 01/06/182324 Urine Clarity Cloudy 01/06/182324 Urine pH 5.0 pH 01/06/182324 Urine Specific Glasco 1.019 01/06/182324 Urine Protein Negative mg/dL 01/06/182324 Urine Glucose (UA) Negative mg/dL 01/06/182324 Urine Ketones Negative mg/dL 01/06/182324 Urine Blood Negative 01/06/182324 Urine Nitrite Negative 01/06/182324 Urine Bilirubin Negative 01/06/182324 Urine Urobilinogen Negative mg/dL 01/06/182324 Urine Leukocyte Esterase Moderate H 01/06/182324 Urine RBC 5 /HPF 01/06/182324 Urine WBC 104 /HPF 01/06/182324 Urine Squamous Epithelial Cells Many /LPF H 01/06/182324 Urine Transitional Epithelial Cells Many /LPF H 01/06/182324 Urine Bacteria Moderate /HPF H 01/06/182324 Urine Mucus Few /HPF 01/06/182324 EKG / Imaging Imaging PATIENT NAME: Mariposa Juarez : 1980 MR: [id number] V: [id number] EXAM DATE: ORDERING PHYSICIAN: DEVI URRUTIA TECHNOLOGIST: Location: [facility] [place] Patient: Mariposa Juarez : 1980 Visit/Account:[id number] Date of Sevice: 01/07/2018 ABDOMEN W W/O CONTRAST HISTORY: pancreatitis Additional history: Markedly elevated lipase TECHNIQUE: Axial imaging performed from the lung bases to the iliac crest with and without IV contrast. Coronal and sagittal reformatting also performed. One of the following dose optimization techniques was utilized in the performance of this exam: Automated exposure control; adjustment of the mA and/or kV according to the patient's size; or use of an iterative reconstruction technique. Specific details can be referenced in the facility's radiology CT exam operational policy. Contrast: 100 mL Isovue-370 COMPARISON: Right upper quadrant ultrasound same date which demonstrated cholelithiasis but no biliary duct dilatation. Pancreas unremarkable by ultrasound. FINDINGS: Visualized lung bases: Negative. Hepatobiliary: Liver appears normal. Multiple small stones are seen in the gallbladder which is nondistended. There is no evidence of biliary ductal distention. No intraductal stones are identified. CT, however, is relatively insensitive for gallstones. Spleen: Negative. Adrenals: Negative. Pancreas: The pancreas demonstrates homogenous enhancement. Despite labs indicating pancreatitis there are no morphologic changes and there is no evidence of peripancreatic fat stranding or peripancreatic fluid. Kidneys and visualized portion of ureters: Negative. Visualized GI: Visualized portions of the GI tract normal. Vessels/spaces/nodes: Negative. Bones/soft tissues: Negative. Additional findings: None pertinent. IMPRESSION: Cholelithiasis. Examination otherwise unremarkable. Despite labs consistent with pancreatitis and there is no evidence of morphologic changes and pancreas demonstrates normal parenchymal enhancement. Report Dictated By: Baudilio Paniagua MD at 01/07/2018 10:40 AM Report E-Signed By: Baudilio Paniagua MD at 01/07/2018 10:50 AM WSN:[id number] PATIENT NAME: Mariposa Juarez : 1980 MR: [id number] V: [id number] EXAM DATE: [id number] ORDERING PHYSICIAN: DEVI URRUTIA TECHNOLOGIST: Location: [facility] [place] Patient: Mariposa Juarez : 1980 Visit/Account:[id number] Date of Sevice: 01/07/2018 GALLBLADDER HISTORY: ruq pain/elevated lft's ADDITIONAL HISTORY: Lipase 13,000 COMPARISON: None. FINDINGS: Liver: Negative. Gallbladder: Multiple stones are seen layering dependently in the gallbladder. Gallbladder wall is unremarkable. Negative sonographic Maxwell's sign. Common duct: 3.7 mm diameter. Pancreas: Pancreas is unremarkable in appearance. I would caution, however, the ultrasound is insensitive for uncomplicated pancreatitis. Right kidney: 10.2 cm in length morphologically unremarkable. Upper abdominal aorta and IVC: Patent. Ascites: None visualized. IMPRESSION: Cholelithiasis without sonographic evidence of cholecystitis. No evidence of biliary ductal dilatation. Exam otherwise unremarkable. Report Dictated By: Baudilio Paniagua MD at 01/07/2018 10:21 AM Report E-Signed By: Baudilio Paniagua MD at 01/07/2018 10:25 AM WSN:[id number] Assessment and Plan Problems: (1) Acute pancreatitis Status: Acute Assessment & Plan: Based on history and work-up to this point, most likely secondary to gallstone. CT and US do not show stone in common duct at this time. Will admit, place on IV fluids, keep NPO, give IV analgesics/anti-emetics as needed, and watch labs closely. She will most likely need cholecystectomy in very near future (after acute pancreatitis resolved). (2) Depression Status: Chronic Assessment & Plan: Will need to hold her Wellbutrin and Lexapro for now. (3) GERD (gastroesophageal reflux disease) Status: Chronic Assessment & Plan: Will continue H2 mitul (Pepcid while here). (4) PTSD (post-traumatic stress disorder) Status: Chronic Assessment & Plan: She is followed at the ID. Will need to hold her usual regimen while here. (5) UTI (urinary tract infection) Status: Acute Assessment & Plan: Found on her initial visit to the ER. She is growing a GNR on culture. Will cover with IV Levaquin. Venous Thromboembolism Antithrombotics Is Pt On Any Antithrombotics?: No (ambulation and JOHNATHON hose) Exam Sepsis Risk: No Definite Risk Problem Qualifiers (1) Acute pancreatitis: Pancreatitis type: unspecified pancreatitis type Acute pancreatitis complication: unspecified Qualified Codes: K85.90 - Acute pancreatitis without necrosis or infection, unspecified LUC RUST MD Jan 07, 2018 12:50
[2018-01-07] MEDS: KCL/NS* 20 MEQ/1000 ML PREMIX 1,000 ML IV PRN (13:14)
[2018-01-07] MEDS: LEVOFLOXACIN/D5W 250 MG/50 ML 50 ML IVPB SCH (13:22)
[2018-01-07 15:18] VITALS: BP 90/43
[2018-01-07 20:16] VITALS: BP 111/60
[2018-01-07] MEDS: FAMOTIDINE(*) 20MG/50ML PREMIX 50 ML IVPB SCH (20:29)
[2018-01-07 22:53] VITALS: BP 118/85
[2018-01-08 03:22] VITALS: BP 115/75
[2018-01-08] MEDS: KCL/NS* 20 MEQ/1000 ML PREMIX 1,000 ML IV PRN ×3 (03:58→20:11)
[2018-01-08 06:36] LABS: PLATELET COUNT, AUTOMATED 204 K/uL (150-450)
[2018-01-08 07:02] VITALS: BP 104/60
[2018-01-08] MEDS: FAMOTIDINE(*) 20MG/50ML PREMIX 50 ML IVPB SCH ×2 (09:39→20:23)
--- NOTE | 2018-01-08 10:34 | Hospitalist Progress Note ---
Subjective Progress Notes Subjective This patient was admitted for pancreatitis. She had no acute events overnight. Patient Complains of: Cardiovascular: No: Chest Pain Respiratory: No: Shortness of Breath Physical Exam Vital Signs Date Time Temp Pulse Resp B/P (MAP) Pulse Ox O2 Delivery O2 Flow Rate FiO2 01/08/18 10:02 98 01/08/18 07:16 18 01/08/18 07:04 Nasal Cannula 1.5 01/08/18 07:02 98.4 51 104/60 (75) Intake and Output 01/09/18 07:00 Intake Total 50 ml Balance 50 ml IV Total 50 ml Cardiovascular: Regular Rate and Rhythm Respiratory: Clear to Auscultation GI: Soft and Non-Tender Integumentary: No Jaundice Result Diagram: 01/08/1853201/08/18532 Item Value Date Time Lipase 247 U/L 01/08/18532 Total Bilirubin 0.2 mg/dl 01/08/18532 Aspartate Amino Transf (AST/SGOT) 48 U/L H 01/08/18532 Alanine Aminotransferase (ALT/SGPT) 62 U/L H 01/08/18532 Assessment and Plan Problems: (1) Acute pancreatitis Status: Acute Assessment & Plan: She did present with abdominal pain and her lipase was found to be elevated. This is likely secondary to gallstones. Her gallbladder ultrasound and abdominal CT have shown evidence of stones, but she did not have any ductal dilation. She was placed NPO overnight and her lipase has returned to normal. We are advancing her diet today. She will likely need to follow up with surgery for cholecystectomy. (2) Depression Status: Chronic Assessment & Plan: She is on chronic treatment with Lexapro and Wellbutrin, which are both currently on hold. (3) GERD (gastroesophageal reflux disease) Status: Chronic Assessment & Plan: She is on chronic treatment with Zantac. (4) UTI (urinary tract infection) Status: Acute Assessment & Plan: She was diagnosed with a urinary infection on her initial emergency room visit and was placed on cefuroxime. Her urine culture from that admission did show growth of pansensitive E. coli. She was placed on IV levofloxacin at admission, but can likely just continue her oral antibiotics at discharge. Exam Sepsis Risk: No Definite Risk Problem Qualifiers (1) Acute pancreatitis: Pancreatitis type: unspecified pancreatitis type Acute pancreatitis complication: unspecified Qualified Codes: K85.90 - Acute pancreatitis without necrosis or infection, unspecified MARIA DE JESUS PRINGLE DO Jan 08, 2018 10:34
[2018-01-08 12:22] VITALS: BP 108/74
[2018-01-08] MEDS: LEVOFLOXACIN/D5W 250 MG/50 ML 50 ML IVPB SCH (13:43)
[2018-01-08 16:23] VITALS: BP 120/58
[2018-01-08] MEDS: KETOROLAC 15 MG/ML VIAL IVP PRN (17:53)
[2018-01-08] MEDS: PROMETHAZINE 25 MG/ML 1 ML AMP IVP PRN (18:03)
[2018-01-08 20:04] VITALS: BP 109/67
[2018-01-09] VITALS (14 sets, daily range): BP systolic 119–141; BP diastolic 67–96
[2018-01-09] MEDS: KCL/NS* 20 MEQ/1000 ML PREMIX 1,000 ML IV PRN ×2 (03:25→11:32)
[2018-01-09] MEDS: FAMOTIDINE(*) 20MG/50ML PREMIX 50 ML IVPB SCH ×2 (08:34→20:57)
--- NOTE | 2018-01-09 09:48 | Hospitalist Progress Note ---
Subjective Progress Notes Subjective She has no complaints this morning. Patient Complains of: Cardiovascular: No: Chest Pain Respiratory: No: Shortness of Breath Physical Exam Vital Signs Date Time Temp Pulse Resp B/P (MAP) Pulse Ox O2 Delivery O2 Flow Rate FiO2 01/09/18 08:32 99 01/09/18 08:31 98.1 51 16 124/71 (88) Nasal Cannula 1.0 Intake and Output 01/10/18 07:00 Intake Total 50 ml Balance 50 ml IV Total 50 ml General Appearance: Alert, Awake, No Acute Distress, Afebrile Neuro: No Gross deficits Cardiovascular: Regular Rate and Rhythm Respiratory: No Respiratory Distress, Clear to Auscultation GI: Soft and Non-Tender Psych: Alert & Oriented X3, Appropriate Mood & Affect Result Diagram: 01/08/1853201/08/18532 Assessment and Plan Problems: (1) Acute pancreatitis Status: Acute Assessment & Plan: She did present with abdominal pain and her lipase was found to be elevated. This is likely secondary to gallstones. Her gallbladder ultrasound and abdominal CT have shown evidence of stones, but she did not have any ductal dilation. She was placed NPO upon admission and her lipase has returned to normal. She was placed on clear liquid diet yesterday. We have consulted Dr. Harris for the possible need for cholecystectomy. (2) Depression Status: Chronic Assessment & Plan: She is on chronic treatment with Lexapro and Wellbutrin, which are both currently on hold. (3) GERD (gastroesophageal reflux disease) Status: Chronic Assessment & Plan: She is on chronic treatment with Zantac. (4) UTI (urinary tract infection) Status: Acute Assessment & Plan: She was diagnosed with a urinary infection on her initial emergency room visit and was placed on cefuroxime. Her urine culture from that admission did show growth of pansensitive E. coli. She was placed on IV levofloxacin at admission, but can likely just continue her oral antibiotics at discharge. Exam Sepsis Risk: No Definite Risk Problem Qualifiers (1) Acute pancreatitis: Pancreatitis type: unspecified pancreatitis type Acute pancreatitis complication: unspecified Qualified Codes: K85.90 - Acute pancreatitis without necrosis or infection, unspecified ISIAH VILLAGOMEZ VENEER SPLICER Jan 09, 2018 09:47
--- NOTE | 2018-01-09 11:57 | General Surgery Consultation ---
History of Present Illness Requesting Physician dr preston banerjee Reason for Consult gallstone pancreatitis Chief Complaint epigastric pain History of Present Illness 37 yo female with ptsd and asthma who has had intermittent epigastric pain ion the past several months. 3 days ago developed severe pain with radiation to the back and nausea and vomiting. made her go to the ed. she was found to have elevated lipase. ct and ultrasound reveals cholelithiasis. she is feeling better now and lipase has returned to normal. History Home Meds Active Scripts Cefuroxime Axetil (CEFUROXIME) 500 Mg Tablet, 500 MG PO BID for infection, #14 TAB Prov:WYATT GAO DO 01/06/18 Ondansetron (ZOFRAN ODT) 4 Mg Tab.rapdis, 4 MG PO every 6 hours Y for NAUSEA/ VOMITING, #10 TAB TAKE 1 TABLET BY MOUTH EVERY 12 HOURS Prov:WYATT GAO DO 01/06/18 Hydrocodone Bit/Acetaminophen (NORCO 5-325 TABLET) 1 Each Tablet, 1 EACH PO Q4H Y for PAIN, #8 TAB Prov:WYATT GAO DO 01/06/18 Reported Medications Diphenhydramine Hcl (DIPHENHYDRAMINE HCL) 25 Mg Capsule, 25 MG PO Q6-8H, CAPSULE 01/07/18 Multivitamin/Iron/Folic Acid (Centrum Adults Tablet) 18 Mg Iron-400 Mcg Tablet, 1 TAB PO QDAY 01/07/18 Ipratropium/Albuterol Sulfate (COMBIVENT RESPIMAT INHAL SPRAY) 4 Gm Aer.w.adap, 1 EACH IH QID Y for SHORTNESS OF BREATH 01/07/18 Ibuprofen (MOTRIN IB) 200 Mg Tablet, 3 TAB PO BID 01/07/18 Ranitidine Hcl (ZANTAC) 150 Mg Tablet, 150 MG PO BID, TAB 01/06/18 Escitalopram Oxalate (ESCITALOPRAM OXALATE) 10 Mg Tablet, 10 MG PO QDAY, TAB 01/06/18 Cetirizine Hcl (ZYRTEC) 10 Mg Tablet, 10 MG PO QDAY, TAB 01/06/18 Zolpidem Tartrate (AMBIEN) 10 Mg Tablet, 1 TAB PO QHS, TAB 01/06/18 Bupropion Hcl (BUPROPION HCL SR) 150 Mg Tablet.er, 150 MG PO QDAY, #10 TAB 01/06/18 Clonazepam (CLONAZEPAM) 0.5 Mg Tab.rapdis, 0.5 MG PO BID, #6 TAB 01/06/18 Norgestimate-Ethinyl Estradiol (MONONESSA) 1 Each Tablet, 1 EACH PO QDAY 01/06/18 Discontinued Reported Medications Ipratropium/Albuterol Sulfate (COMBIVENT RESPIMAT INHAL SPRAY) 4 Gm Aer.w.adap, 1 EACH IH QID 01/06/18 Fluticasone Prop 50 Mcg Ns (FLONASE 50 MCG NS) 16 Gm [place].susp, 1 SPRAY NS BID , BOT 01/06/18 Cyclobenzaprine Hcl (CYCLOBENZAPRINE HCL) 10 Mg Tablet, 10 MG PO TID, #9 TAB 01/06/18 Allergies: Coded Allergies: Penicillins (Verified Allergy, Intermediate, RASH, 01/07/18) Family History: Hypertension MOTHER Review of Systems Constitutional: No Fever, No Weight Loss, No Weight Gain, No Chills, No Night Sweats, No Other Neurological: No Syncope, No Confusion, No Weakness, No Dizziness, No Slurred Speech, No Other Eyes: No Vision Change, No Loss of Vision, No Photophobia, No Other ENT: No Hearing Loss, No Sinus Congestion, No Sore Throat, No Ear Ache, No Tinnitus, No Other Cardiovascular: No Chest Pain, No Palpitations, No Orthostatic Hypotension, No Other Respiratory: No Shortness of Breath, No Cough, No Wheezing, No Other Genitourinary: No Dysuria, No Hematuria, No Urinary Incontinence, No Other Exam Vital Signs Vital Signs Date Time Temp Pulse Resp B/P (MAP) Pulse Ox O2 Delivery O2 Flow Rate FiO2 01/09/18 08:32 99 01/09/18 08:31 98.1 51 16 124/71 (88) Nasal Cannula 1.0 General Appearance: Alert, Awake, No Acute Distress Cardiovascular: Regular Rate and Rhythm Respiratory: Clear to Auscultation GI: Abd Soft and Non-Tender Medical Decision Making Data Points Result Diagram: 01/08/1853201/08/18532 Assessment and Plan Problems: (1) Cholelithiasis and cholecystitis without obstruction Assessment & Plan: recommend laparoscopic cholecystectomy and cholangiogram. discussed procedure and complications and common bile duct stones and treatment for those. she understands and wishes to proceed. Copies to: BUSHRA GIBBS MD Venous Thromboembolism Antithrombotics Is Pt On Any Antithrombotics?: No (ambulation and JOHNATHON hose) BUSHRA GIBBS MD Jan 09, 2018 11:57
[2018-01-09] MEDS: LEVOFLOXACIN/D5W 250 MG/50 ML 50 ML IVPB SCH (13:14)
[2018-01-09] MEDS ORDERED: NORMOSOL R SOLN(*) 1000 ML BAG 1,000 ML IV ONE (13:14)
--- NOTE | 2018-01-09 13:58 | Medical Nutrition Therapy ---
Nutrition Anthropometrics Height (Inches): 63.00 Height (Calculated Centimeters: 160.489416 Weight (Pounds): 205 Weight (Calculated Kilograms): 93.128 BMI Calculated: 35.42 Rm Nutrition Score: Probably Inadequate Rm Nutrition Risk Score: 19 Dietary Referral Nutrition Risk Factors: Nutrition Risk Comment: Physical Findings Physical Appearance: Obese BMI 30-39 Skin Appearance Skin Appearance: Edema Edema Location Modifier: Edema Location: Type of Edema: Degree of Edema: Gastrointestinal Symptoms GI Symtoms: Appetite Changes Tube Present: Bowel Sounds: Recent Bowel Pattern: Stool Characteristics: Nutritional Diagnosis Nutritional Risk Acuity 2: Pancreatitis Past Medical History: Asthma, GERD, PTSD Nutritional Acuity: 2-Moderate Nutrition Diagnosis: Altered GI Function Nutrition Etiology: Physiological Causes Nutrition Problem/Etiology/Sym: Altered Gastrointestinal (GI) Function related to compromised exocrine function of related GI organs, e.g., pancreas [place] [address] [place] admit. Energy Requirement: 2200 ([place]-St Jeor: Actual BW X 1.4) Protein Requirement: 72 (Actual BW Kg X .8) Fluid Requirement: 2200 Diet Type: NPO (Nothing by Mouth) Nutrition Intervention: Incr diet as tolerated Nutritional Support Recommended Enteral / Parental: Tube Feeding Recommended Tube Feeding Formu: Jevity 1cal/ml-Standard Tube Feeding Supplement Streng: Full Recommended Feeding Route: FT Placed Nasogastric Recommended Rate: TF 25 Ml/hr increase 15ml/hr q 4 hrs to final rate 85ml/hr Recommended Duration: 24 Recommended Calories: 2163 Recommended Protein: 90 Nutrition Monitoring & Eval RD Patient Assessment Time: [address] Assessment Type: RD Re-Assessment Patient Nutrition Acuity: 2-Moderate Follow Up Date: January 10, 2018 Nutritional Comment: 01/07 Pt admitted for pancreatitis. Lipase 90313, High AST/ALT, Low K+/CO2. Class II obesity with BMI of 35.4. Pt NPO at present. Follow clinical progression and diet changes, labs, etc. 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 Recommend nutrtion support if diet not advanced in 24 hrs. Jevity 1 at final rate of 85 ml/hr would meet 98% est kcal and 124% est protein needs. Lipase curretnlu WNR. Alb 2.8. Cont to monitor. YAMILETH GÓMEZ Jan 09, 2018 13:58
[2018-01-09] MEDS ORDERED: LIDOCAINE MPF 1% 5 ML VIAL ONE (14:17)
[2018-01-09] MEDS ORDERED: ONDANSETRON 4 MG/2 ML VIAL ONE ×2 (14:17→18:28)
[2018-01-09] MEDS ORDERED: DEXAMETHASONE SOD 4 MG/ML VIAL ONE (14:17)
[2018-01-09] MEDS ORDERED: ROCURONIUM BROM 10 MG/ML 10 ML ONE (14:17)
[2018-01-09] MEDS ORDERED: PROPOFOL EMUL(*) 10MG/ML 20 ML 20 ML ONE (14:17)
[2018-01-09] MEDS ORDERED: fentaNYL CITR 250 MCG/5 ML AMP ONE (14:18)
[2018-01-09] MEDS ORDERED: KETAMINE HCL 200 MG/20 ML MDV ONE (14:20)
[2018-01-09] MEDS ORDERED: IOPAMIDOL 61% 75 ML INFUS BTL 75 ML ONE (14:42)
[2018-01-09] MEDS ORDERED: ROPIVACAINE 0.2% 20 ML VIAL ONE (14:42)
--- NOTE | 2018-01-09 15:56 | RADIOLOGY IMAGING REPORT ---
FACILITY: [facility] - [place] PATIENT NAME: Mariposa Juarez : 1980 MR: [id number] V: [id number] EXAM DATE: ORDERING PHYSICIAN: BUSHRA GIBBS TECHNOLOGIST: Location: [facility] Patient: Mariposa Juarez : 1980 Visit/Account:[id number] Date of Sevice: 01/09/2018 Exam type: CHEST SINGLE AP History: Preop Comparison: None. Findings: There is a small band of scarring versus platelike atelectasis in the lateral left lung base. The graeme ngs are otherwise free of consolidation. No evidence of pulmonary edema. The cardiac silhouette is normal in size. The trachea is in midline. IMPRESSION: 1. Small band of scarring versus platelike atelectasis in the lateral left lung base Report Dictated By: Ofelia Holman MD at 01/09/2018 3:51 PM Report E-Signed By: Ofelia Holman MD at 01/09/2018 3:52 PM WSN:[email or web address]
[2018-01-09] MEDS ORDERED: SUGAMMADEX SOD 200 MG/2 ML SDV ONE ×2 (16:42→17:47)
--- NOTE | 2018-01-09 17:02 | Post Operative Progress Note ---
Post Operative Progress Note Date: Jan 09, 2018 Time: 17:55 Surgeon: jerry Anesthesia: dr ibarra Pre-Op Diagnosis: gall stone pancreatitis Post-Op Diagnosis: same Procedure(s): lap roxanne with BUSHRA Tate MD Jan 09, 2018 17:02
[2018-01-09] MEDS ORDERED: KETOROLAC 30 MG/ML VIAL ONE (17:42)
[2018-01-09] MEDS ORDERED: fentaNYL CITR 100 MCG/2 ML AMP ONE ×2 (17:46→18:42)
[2018-01-09] MEDS ORDERED: ALBUTEROL/IPRATROPIUM 3 ML NEB NEB ONE (18:05)
[2018-01-09] MEDS: fentaNYL CITR 100 MCG/2 ML AMP ONE (18:48)
[2018-01-09] MEDS ORDERED: ACETAMINOPHEN(*)1000 MG/100 ML 100 ML IVPB ONE (19:05)
[2018-01-09] MEDS: PROMETHAZINE 25 MG/ML 1 ML AMP IVP PRN (19:55)
--- NOTE | 2018-01-09 21:06 | RADIOLOGY IMAGING REPORT ---
[place] [facility] [place]: Mariposa Juarez : 1980 MR: [id number] V: [id number] EXAM DATE: ORDERING PHYSICIAN: BUSHRA GIBBS TECHNOLOGIST: Location: [facility] [place] Patient: Mariposa Juarez : 1980 Visit/Account:[id number] Date of Sevice: 01/09/2018 Cholangiogram in OR: Indication: Cholecystitis. Intraoperative imaging. Technique: 90 images were submitted. Fluoroscopy time was 16.8 seconds. Comparison: None. Findings: Contrast was injected through the cystic duct remnant. There is uniform opacification of th e visualized ductal structures. The flow of contrast into the duodenum appears unrestricted. There ar e no signs of obstruction, dilatation, filling defect, or stricture. Impression: Unremarkable study. Report Dictated By: Sam Killian MD at 01/09/2018 8:56 PM Report E-Signed By: Sam Killian MD at 01/09/2018 9:01 PM WSN:[id number]
[2018-01-09] MEDS: KETOROLAC 15 MG/ML VIAL IVP PRN (22:59)
[2018-01-10] VITALS: BP 146/89
[2018-01-10 01:00] VITALS: BP 129/70
[2018-01-10 02:00] VITALS: BP 115/68
--- NOTE | 2018-01-10 06:42 | General Surgery Progress Note ---
Subjective Progress Notes Subjective slept well, no nausea, pain controlled Physical Exam Vital Signs Date Time Temp Pulse Resp B/P (MAP) Pulse Ox O2 Delivery O2 Flow Rate FiO2 01/10/18 05:23 95 01/10/18 02:00 56 115/68 (84) Nasal Cannula 4.0 01/10/18 00:00 98.2 01/09/18 19:46 12 General Appearance: Alert, Awake, No Acute Distress GI: Soft and Non-Tender Result Diagram: 01/08/18 0533 01/08/18 0533 Assessment and Plan Problems: (1) Cholelithiasis and cholecystitis without obstruction Assessment & Plan: recommend laparoscopic cholecystectomy and cholangiogram. discussed procedure and complications and common bile duct stones and treatment for those. she understands and wishes to proceed. 01/10/18 doing well home today Exam Sepsis Risk: No Definite Risk BUSHRA GIBBS MD January 10, 2018 06:42
[2018-01-10] MEDS ORDERED: HYDR-4309 PO (06:44)
[2018-01-10] MEDS ORDERED: KET10 PO (06:44)
--- NOTE | 2018-01-10 06:45 | Hospitalist Depart ---
Discharge Summary Reason for Hosp/Final Diag: (1) Cholelithiasis and cholecystitis without obstruction Hospital Course & Plan: recommend laparoscopic cholecystectomy and cholangiogram. discussed procedure and complications and common bile duct stones and treatment for those. she understands and wishes to proceed. 01/10/18 doing well home today Departure Weight (Pounds): 205 Weight (Ounces): 5.0 Result Diagram: 01/08/1853201/08/18532 Condition: Improved Discharge: Home Discharge Instructions Home Meds Active Scripts Hydrocodone Bit/Acetaminophen (NORCO 5-325 TABLET) 1 Each Tablet, 1 EACH PO Q4H Y for PAIN, #30 TAB Prov:BUSHRA GIBBS MD 01/10/18 Ketorolac Tromethamine (KETOROLAC TROMETHAMINE) 10 Mg Tab, 10 MG PO Q6H, #12 TAB Prov:BUSHRA GIBBS MD 01/10/18 Cefuroxime Axetil (CEFUROXIME) 500 Mg Tablet, 500 MG PO BID for infection, #14 TAB Prov:WYATT GAO DO 01/06/18 Ondansetron (ZOFRAN ODT) 4 Mg Tab.rapdis, 4 MG PO every 6 hours Y for NAUSEA/ VOMITING, #10 TAB TAKE 1 TABLET BY MOUTH EVERY 12 HOURS Prov:WYATT GAO DO 01/06/18 Hydrocodone Bit/Acetaminophen (NORCO 5-325 TABLET) 1 Each Tablet, 1 EACH PO Q4H Y for PAIN, #8 TAB Prov:WYATT GAO DO 01/06/18 Reported Medications Diphenhydramine Hcl (DIPHENHYDRAMINE HCL) 25 Mg Capsule, 25 MG PO Q6-8H, CAPSULE 01/07/18 Multivitamin/Iron/Folic Acid (Centrum Adults Tablet) 18 Mg Iron-400 Mcg Tablet, 1 TAB PO QDAY 01/07/18 Ipratropium/Albuterol Sulfate (COMBIVENT RESPIMAT INHAL SPRAY) 4 Gm Aer.w.adap, 1 EACH IH QID Y for SHORTNESS OF BREATH 01/07/18 Ibuprofen (MOTRIN IB) 200 Mg Tablet, 3 TAB PO BID 01/07/18 Ranitidine Hcl (ZANTAC) 150 Mg Tablet, 150 MG PO BID, TAB 01/06/18 Escitalopram Oxalate (ESCITALOPRAM OXALATE) 10 Mg Tablet, 10 MG PO QDAY, TAB 01/06/18 Cetirizine Hcl (ZYRTEC) 10 Mg Tablet, 10 MG PO QDAY, TAB 01/06/18 Zolpidem Tartrate (AMBIEN) 10 Mg Tablet, 1 TAB PO QHS, TAB 01/06/18 Bupropion Hcl (BUPROPION HCL SR) 150 Mg Tablet.er, 150 MG PO QDAY, #10 TAB 01/06/18 Clonazepam (CLONAZEPAM) 0.5 Mg Tab.rapdis, 0.5 MG PO BID, #6 TAB 01/06/18 Norgestimate-Ethinyl Estradiol (MONONESSA) 1 Each Tablet, 1 EACH PO QDAY 01/06/18 Discontinued Reported Medications Ipratropium/Albuterol Sulfate (COMBIVENT RESPIMAT INHAL SPRAY) 4 Gm Aer.w.adap, 1 EACH IH QID 01/06/18 Fluticasone Prop 50 Mcg Ns (FLONASE 50 MCG NS) 16 Gm [place].susp, 1 SPRAY NS BID , BOT 01/06/18 Cyclobenzaprine Hcl (CYCLOBENZAPRINE HCL) 10 Mg Tablet, 10 MG PO TID, #9 TAB 01/06/18 Diet: Regular Activity: As Tolerated Special Instructions: ice to incisions for 24 hours remove bandages and shower tomorrow to see me in one week, call [phone] for apt Venous Thromboembolism Antithrombotics Is Pt On Any Antithrombotics?: No (ambulation and JOHNATHON hose) Problem Qualifiers (1) Cholelithiasis and cholecystitis without obstruction: Cholelithiasis location: gallbladder Cholecystitis acuity: acute and chronic Qualified Codes: K80.12 - Calculus of gallbladder with acute and chronic cholecystitis without obstruction BUHSRA GIBBS MD January 10, 2018 06:45
[2018-01-10 07:58] VITALS: BP 116/70
[2018-01-10] MEDS: FAMOTIDINE(*) 20MG/50ML PREMIX 50 ML IVPB SCH (08:17)
[2018-01-10] MEDS: KETOROLAC 15 MG/ML VIAL IVP PRN (08:17)
[2018-01-10] MEDS ORDERED: methylPREDNIS SUCC 125 MG/2ML IVP ONE (08:35)
[2018-01-10] MEDS ORDERED: ALBUTEROL/IPRATROPIUM 3 ML NEB NEB ONE (08:35)
--- NOTE | 2018-01-10 09:14 | Hospitalist Progress Note ---
Subjective Progress Notes Subjective She has complaints of SOB this morning. She feels she might have an asthma attach soon. Patient Complains of: Cardiovascular: No: Chest Pain Respiratory: Shortness of Breath Physical Exam Vital Signs Date Time Temp Pulse Resp B/P (MAP) Pulse Ox O2 Delivery O2 Flow Rate FiO2 01/10/18 09:05 69 16 01/10/18 08:57 99 Nasal Cannula 2.0 01/10/18 07:58 98.2 116/70 (85) General Appearance: Alert, Awake, No Acute Distress, Afebrile Neuro: No Gross deficits Cardiovascular: Regular Rate and Rhythm Respiratory: No Respiratory Distress, Other (diminished in the bases) Psych: Alert & Oriented X3, Appropriate Mood & Affect Result Diagram: 01/08/1853201/08/18532 Assessment and Plan Problems: (1) Acute pancreatitis Status: Acute Assessment & Plan: She did present with abdominal pain and her lipase was found to be elevated. This is likely secondary to gallstones. Her gallbladder ultrasound and abdominal CT have shown evidence of stones, but she did not have any ductal dilation. She was placed NPO upon admission, we advanced her diet and her lipase has returned to normal. Dr. Harris performed cholecystectomy yesterday. He has cleared her to go home today. (2) Asthma Assessment & Plan: She uses Combivent inhaler as needed. She will receive nebulizer this morning, with steroid to help prevent asthma exacerbation. She does feel SOB this morning, but her lungs sounds have no wheezes. She was educated that Combivent should be a scheduled medication, rather than PRN to help better control asthma symptoms. (3) Depression Status: Chronic Assessment & Plan: She is on chronic treatment with Lexapro and Wellbutrin, which are both currently on hold. (4) GERD (gastroesophageal reflux disease) Status: Chronic Assessment & Plan: She is on chronic treatment with Zantac. (5) UTI (urinary tract infection) Status: Acute Assessment & Plan: She was diagnosed with a urinary infection on her initial emergency room visit and was placed on cefuroxime. Her urine culture from that admission did show growth of pansensitive E. coli. She was placed on IV levofloxacin at admission, but can likely just continue her oral antibiotics at discharge. Exam Sepsis Risk: No Definite Risk Problem Qualifiers (1) Acute pancreatitis: Pancreatitis type: unspecified pancreatitis type Acute pancreatitis complication: unspecified Qualified Codes: K85.90 - Acute pancreatitis without necrosis or infection, unspecified ISIAH VILLAGOMEZ January 10, 2018 09:14
--- NOTE | 2018-01-10 10:55 | Hospitalist Depart ---
Discharge Summary Reason for Hosp/Final Diag: (1) Acute pancreatitis Status: Acute Hospital Course & Plan: She did present with abdominal pain and her lipase was found to be elevated. This is likely secondary to gallstones. Her gallbladder ultrasound and abdominal CT have shown evidence of stones, but she did not have any ductal dilation. She was placed NPO upon admission, we advanced her diet and her lipase has returned to normal. Dr. Harris performed cholecystectomy yesterday. He has cleared her to go home today. (2) Asthma Hospital Course & Plan: She uses Combivent inhaler as needed. She did receive nebulizer this morning, with steroid to help prevent asthma exacerbation. She does feel better after treatment. She was educated that Combivent should be a scheduled medication, rather than PRN to help better control asthma symptoms. She will use her Combivent twice daily and follow up with her PCP. She will go home on oxygen also. (3) Depression Status: Chronic Hospital Course & Plan: She is on chronic treatment with Lexapro and Wellbutrin. (4) GERD (gastroesophageal reflux disease) Status: Chronic Hospital Course & Plan: She is on chronic treatment with Zantac. (5) UTI (urinary tract infection) Status: Acute Hospital Course & Plan: She was diagnosed with a urinary infection on her initial emergency room visit and was placed on cefuroxime, but she never got the prescription filled. Her urine culture from that admission did show growth of pansensitive E. coli. She was placed on IV levofloxacin at admission for three days. Treatment with Levaquin was sufficient for UTI. Departure Latest Vital Signs Vital Signs 01/10/18 01/10/18 01/10/18 09:05 09:07 10:11 Pulse 69 Resp 16 Pulse Ox 89 O2 Delivery Room Air Weight (Pounds): 205 Weight (Ounces): 3.0 Result Diagram: 01/08/1853201/08/18532 Condition: Improved Discharge: Home, Self Care Discharge Instructions Home Meds Active Scripts Hydrocodone Bit/Acetaminophen (NORCO 5-325 TABLET) 1 Each Tablet, 1 EACH PO Q4H Y for PAIN, #30 TAB Prov:BUSHRA HARRIS MD 01/10/18 Ketorolac Tromethamine (KETOROLAC TROMETHAMINE) 10 Mg Tab, 10 MG PO Q6H, #12 TAB Prov:BUSHRA HARRIS MD 01/10/18 Cefuroxime Axetil (CEFUROXIME) 500 Mg Tablet, 500 MG PO BID for infection, #14 TAB Prov:WYATT GOA DO 01/06/18 Ondansetron (ZOFRAN ODT) 4 Mg Tab.rapdis, 4 MG PO every 6 hours Y for NAUSEA/ VOMITING, #10 TAB TAKE 1 TABLET BY MOUTH EVERY 12 HOURS Prov:WYATT GAO DO 01/06/18 Hydrocodone Bit/Acetaminophen (NORCO 5-325 TABLET) 1 Each Tablet, 1 EACH PO Q4H Y for PAIN, #8 TAB Prov:WYATT GAO DO 01/06/18 Reported Medications Diphenhydramine Hcl (DIPHENHYDRAMINE HCL) 25 Mg Capsule, 25 MG PO Q6-8H, CAPSULE 01/07/18 Multivitamin/Iron/Folic Acid (Centrum Adults Tablet) 18 Mg Iron-400 Mcg Tablet, 1 TAB PO QDAY 01/07/18 Ipratropium/Albuterol Sulfate (COMBIVENT RESPIMAT INHAL SPRAY) 4 Gm Aer.w.adap, 1 EACH IH QID Y for SHORTNESS OF BREATH 01/07/18 Ibuprofen (MOTRIN IB) 200 Mg Tablet, 3 TAB PO BID 01/07/18 Ranitidine Hcl (ZANTAC) 150 Mg Tablet, 150 MG PO BID, TAB 01/06/18 Escitalopram Oxalate (ESCITALOPRAM OXALATE) 10 Mg Tablet, 10 MG PO QDAY, TAB 01/06/18 Cetirizine Hcl (ZYRTEC) 10 Mg Tablet, 10 MG PO QDAY, TAB 01/06/18 Zolpidem Tartrate (AMBIEN) 10 Mg Tablet, 1 TAB PO QHS, TAB 01/06/18 Bupropion Hcl (BUPROPION HCL SR) 150 Mg Tablet.er, 150 MG PO QDAY, #10 TAB 01/06/18 Clonazepam (CLONAZEPAM) 0.5 Mg Tab.rapdis, 0.5 MG PO BID, #6 TAB 01/06/18 Norgestimate-Ethinyl Estradiol (MONONESSA) 1 Each Tablet, 1 EACH PO QDAY 01/06/18 Discontinued Reported Medications Ipratropium/Albuterol Sulfate (COMBIVENT RESPIMAT INHAL SPRAY) 4 Gm Aer.w.adap, 1 EACH IH QID 01/06/18 Fluticasone Prop 50 Mcg Ns (FLONASE 50 MCG NS) 16 Gm [place].susp, 1 SPRAY NS BID , BOT 01/06/18 Cyclobenzaprine Hcl (CYCLOBENZAPRINE HCL) 10 Mg Tablet, 10 MG PO TID, #9 TAB 01/06/18 Diet: Regular Activity: As Tolerated Special Instructions: ice to incisions for 24 hours remove bandages and shower tomorrow to see Dr. Harris in one week, call [phone] for apt Venous Thromboembolism Antithrombotics Is Pt On Any Antithrombotics?: No (ambulation and JOHNATHON hose) Problem Qualifiers (1) Acute pancreatitis: Pancreatitis type: unspecified pancreatitis type Acute pancreatitis complication: unspecified Qualified Codes: K85.90 - Acute pancreatitis without necrosis or infection, unspecified ISIAH VILLAGOMEZ POWER LINE INSTALLER AND REPAIRER January 10, 2018 10:55
--- NOTE | 2018-01-10 12:08 | Medical Nutrition Therapy ---
Nutritional Education Nutrition Education Topic: Other (low fat) Learning Readiness: Interested Teaching Methods: Discussion, Handout Response to Teaching: Verbalize understanding Teaching Recipient: Patient Nutrition Counseling: Provided handout and reviewed low fat diet s/p pancreatitis with cholecystectomy. Provided 5 days of sample meals. Nutrition Monitoring & Eval RD Patient Assessment Time: [address] Assessment Type: RD Education Patient Nutrition Acuity: 2-Moderate Follow Up Date: January 10, 2018 Nutritional Comment: 01/07 Pt admitted for pancreatitis. Lipase 36184, High AST/ALT, Low K+/CO2. Class II obesity with BMI of 35.4. Pt NPO at present. Follow clinical progression and diet changes, labs, etc. 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 Recommend nutrtion support if diet not advanced in 24 hrs. Jevity 1 at final rate of 85 ml/hr would meet 98% est kcal and 124% est protein needs. Lipase curretnlu WNR. Alb 2.8. Cont to monitor. 01/10 Diet advanced to regular. Pt requested infomation on low fat diet. Hospitalist CONSUMER LENDING MANAGER ordered education which was provided to pt. YAMILETH GÓMEZ January 10, 2018 12:08
[2018-01-10] MEDS ORDERED: APAP/HYDROCODONE 325/5 TAB PO ONE (15:45)
[2018-01-10] MEDS ORDERED: DOCUSATE SODIUM 100 MG CAP PO ONE (15:45)
[2018-01-10] MEDS ORDERED: POLYETHYLENE GLYCOL 17 GM PKT PO ONE (15:45)
--- NOTE | 2018-01-10 17:05 | OPERATIVE REPORT 1 ---
EVENT DATE: January 09, 2018 SURGEON: Octavio Harris MD ANESTHESIOLOGIST: Ayad Suarez MD ANESTHESIA: General. PREOPERATIVE DIAGNOSIS Gallstone pancreatitis. POSTOPERATIVE DIAGNOSIS Gallstone pancreatitis. PROCEDURE PERFORMED Laparoscopic cholecystectomy with intraoperative cholangiogram. DESCRIPTION OF PROCEDURE The patient was placed in the supine position and given general anesthetic. Her abdomen was prepped and draped in a sterile fashion. Skin was anesthetized with 0.2% ropivacaine. Incision was made just above the umbilicus. A Veress needle was inserted. The abdomen was inflated with CO2. We then placed a 5 mm port under direct vision, then placed two 5 mm in the right subcostal region and a 10 mm in the epigastrium. Under direct vision, the gallbladder was grasped and raised cephalad. There were adhesions on the undersurface of the gallbladder. These were taken down with electrocautery. We then dissected out the cystic duct-gallbladder junction, placed a clip there, opened the cystic duct, inserted a Taut catheter, and obtained a cholangiogram. These were normal. Taut catheter was removed. Cystic duct was triply clipped proximally and transected. Cystic artery was dissected out, doubly clipped proximally, once distally, and transected. We then used electrocautery to dissect the gallbladder from the bed of the liver. Dissection went very nicely. We had excellent hemostasis. Gallbladder was placed in an Endo Pouch and removed from the field. We suctioned, irrigated, and inspected for bleeding. We had perfect hemostasis. Ports were removed under direct vision. No bleeding was noted. Skin was closed with interrupted 4-0 Maxon. Steri-Strips and an Airstrip were placed. Patient tolerated the procedure well. No apparent complications. VINITA
== END 2018-01-10 16:30 | disposition home or self-care (01) | DRG 418 ==
LOC: ER 07:50 → MED 11:19
PROVIDERS: ADMIT Internal Medicine; ATTEND Internal Medicine
PROC: BF10YZZ Fluoroscopy of Bile Ducts using Other Contrast (ICD-10-PCS; 2018-01-09)
PROC: 0FT44ZZ Resection of Gallbladder, Percutaneous Endoscopic Approach (ICD-10-PCS; principal; 2018-01-09 16:54)
DX: K85.10 Biliary acute pancreatitis without necrosis or infection (principal); N39.0 Urinary tract infection, site not specified; J45.909 Unspecified asthma, uncomplicated; F32.9 Major depressive disorder, single episode, unspecified; K21.9 Gastro-esophageal reflux disease without esophagitis; B96.20 Unspecified Escherichia coli [E. coli] as the cause of diseases classified elsewhere; F43.10 Post-traumatic stress disorder, unspecified; G89.29 Other chronic pain; Z88.0 Allergy status to penicillin
CPT/HCPCS: 36415; 71045; 74170; 74300; 76705; 82040; 82247; 82310; 82374; 82435; 82565; 82947; 83690; 84075; 84132; 84155; 84295; 84450; 84460; 84478; 84520; 84703; 85025; 88304; 94640; 99284; J0131; J1100; J1170; J1885; J1956; J2001; J2405; J2550; J2704; J2795; J2930; J3010; J3480; J3490; J3535; J7030; Q9967

== ENCOUNTER 2018-01-26 04:31 | Emergency (ER) | payer OTHER ==
[2018-01-07 11:57] VITALS: Wt 82.6 kg
[~2018-01-26 04:31] MED LIST changes: +DIPH-464 PO; +IBUP-1671 PO; +KET10 PO; +MULT-67 PO
--- NOTE | 2018-01-26 04:44 | ER Report ---
History and Physical Time Seen By : 04:44 Hx. of Stated Complaint: Patient recently had gallbladder out and wasn't able to shave so she used a Sahni product. Now with three abcesses. Two on inner right thigh and one on right labia majora HPI/ROS CHIEF COMPLAINT: abscesses on right leg and labia HISTORY OF PRESENT ILLNESS: This is a 37 year old female. She has several areas of suspected abscess on her right leg/thigh area and her labia majora. She had gallbladder surgery and could not shave and so used a Sahni product. Has two areas of redness surrounding hair follicles on the right inner thigh. the more distal of these has been draining a little. The pain and swelling had been increasing. Also with swelling, warmth, pain and redness around a hair follicle on the right labia majora as well. This has not been draining. Associated fevers and chills. Pain is worsening. [facility], but the pain was too severe. Allergies: Coded Allergies: Penicillins (Verified Allergy, Intermediate, RASH, 01/26/18) Home Meds Active Scripts Ondansetron (ZOFRAN ODT) 4 Mg Tab.rapdis, 4 MG PO Q6H Y for NAUSEA/VOMITING, # 20 TAB.LAMAR 0 Refills Prov:PRIYANK GONSALEZ MD 01/26/18 Hydrocodone Bit/Acetaminophen (HYDROCODON-ACETAMINOPHEN 5-325) 1 Each Tablet, 1 EACH PO Q4H Y for PAIN, #16 TAB 0 Refills Prov:PRIYANK GONSALEZ MD 01/26/18 Sulfamethoxazole/Trimet 800-160 Mg Tab (BACTRIM DS TABLET) 1 Each Tablet, 1 TAB PO Q12H for 10 Days, #20 TAB 0 Refills Prov:PRIYANK GONSALEZ MD 01/26/18 Reported Medications Diphenhydramine Hcl (DIPHENHYDRAMINE HCL) 25 Mg Capsule, 25 MG PO Q6-8H, CAPSULE 01/07/18 Multivitamin/Iron/Folic Acid (Centrum Adults Tablet) 18 Mg Iron-400 Mcg Tablet, 1 TAB PO QDAY 01/07/18 Ipratropium/Albuterol Sulfate (COMBIVENT RESPIMAT INHAL SPRAY) 4 Gm Aer.w.adap, 1 EACH IH QID Y for SHORTNESS OF BREATH 01/07/18 Ranitidine Hcl (ZANTAC) 150 Mg Tablet, 150 MG PO BID, TAB 01/06/18 Escitalopram Oxalate (ESCITALOPRAM OXALATE) 10 Mg Tablet, 10 MG PO QDAY, TAB 01/06/18 Cetirizine Hcl (ZYRTEC) 10 Mg Tablet, 10 MG PO QDAY, TAB 01/06/18 Zolpidem Tartrate (AMBIEN) 10 Mg Tablet, 1 TAB PO QHS, TAB 01/06/18 Bupropion Hcl (BUPROPION HCL SR) 150 Mg Tablet.er, 150 MG PO QDAY, #10 TAB 01/06/18 Clonazepam (CLONAZEPAM) 0.5 Mg Tab.rapdis, 0.5 MG PO BID, #6 TAB 01/06/18 Norgestimate-Ethinyl Estradiol (MONONESSA) 1 Each Tablet, 1 EACH PO QDAY 01/06/18 Discontinued Reported Medications Ibuprofen (MOTRIN IB) 200 Mg Tablet, 3 TAB PO BID 01/07/18 Discontinued Scripts Hydrocodone Bit/Acetaminophen (NORCO 5-325 TABLET) 1 Each Tablet, 1 EACH PO Q4H Y for PAIN, #30 TAB Prov:BUSHRA GIBBS MD 01/10/18 Ketorolac Tromethamine (KETOROLAC TROMETHAMINE) 10 Mg Tab, 10 MG PO Q6H, #12 TAB Prov:BUSHRA GIBBS MD 01/10/18 Ondansetron (ZOFRAN ODT) 4 Mg Tab.rapdis, 4 MG PO every 6 hours Y for NAUSEA/ VOMITING, #10 TAB TAKE 1 TABLET BY MOUTH EVERY 12 HOURS Prov:WYATT GAO DO 01/06/18 Hydrocodone Bit/Acetaminophen (NORCO 5-325 TABLET) 1 Each Tablet, 1 EACH PO Q4H Y for PAIN, #8 TAB Prov:WYATT GAO DO 01/06/18 Reviewed Nurses Notes: Yes Hx Smoking: No Hx Substance Use Disorder: No Hx Alcohol Use: Yes (once every three months/none recently) Constitutional Vital Sign - Last 24 Hours 01/26/18 01/26/18 01/26/18 01/26/18 04:36 04:45 05:00 05:15 Temp 100.2 Pulse 100 Resp 16 B/P (MAP) 136/75 124/85 (98) 125/59 (81) 116/72 (87) Pulse Ox 94 93 O2 Delivery Room Air 01/26/18 05:30 B/P (MAP) 121/68 (85) Physical Exam General: Alert, acute distress due to pain. nausea due to severe pain. Skin: right inner thigh with redness, pain, warmth and swelling. Seems to surround two areas about 4cm apart. The distal area looks like it has been draining a little. No opening on the proximal lesion. Definite cellulitis present, question of abscess presence. Skin of the labia majora on the right is swollen as well, red and painful and hot. More tenderness with palpation of this area. No open wound or drainage. Medical Decision Making ED Course/Re-evaluation ED Course I performed a bedside ultrasound, unofficial evaluation, to look and see if there were any abscess pockets that need to be drained. The more distal of the 2 areas on the thigh did show a pocket of fluid that needed to be drained. The more proximal area showed more of inflammatory and swelling in the soft tissue with a hint of a very tiny superficial pocket forming but no real drainable abscess noted. The area on the labia majora showed no pocket of fluid or drainable abscess, mainly showing evidence of soft tissue swelling/phlegmon consistent with a cellulitis at this point. I explained all this to the patient and we went ahead and did an incision and drainage of the more distal wound on the inner right thigh. Procedure: Abscess drainage. The patient's abscess was located on the right inner thigh. I obtained verbal consent from the patient to drain the abscess who was informed about the possibility of bleeding and pain. Local anesthesia with 1% lidocaine without epinephrine and 0.5% bupivacaine with epinephrine. The abscess was incised with a scalpel and a large amount of purulent drainage was expressed. Aerobic and anaerobic cultures were obtained. I irrigated the wound and placed some packing. The patient tolerated the procedure well. The procedure was performed by myself. Decision to Disposition Date: January 26, 2018 Decision to Disposition Time: 05:22 Depart Departure Latest Vital Signs Vital Signs Date Time Temp Pulse Resp B/P (MAP) Pulse Ox O2 Delivery O2 Flow Rate FiO2 01/26/18 05:30 121/68 (85) 01/26/18 04:45 93 01/26/18 04:36 100.2 100 16 Room Air Impression: Primary Impression: Cellulitis and abscess of leg Additional Impression: Cellulitis of labia majora Condition: Improved Disposition: HOME OR SELF-CARE New Scripts Ondansetron (ZOFRAN ODT) 4 Mg Tab.rapdis 4 MG PO Q6H Y for NAUSEA/VOMITING, #20 TAB.LAMAR 0 Refills Prov: PRIYANK GONSALEZ MD 01/26/18 Hydrocodone Bit/Acetaminophen (HYDROCODON-ACETAMINOPHEN 5-325) 1 Each Tablet 1 EACH PO Q4H Y for PAIN, #16 TAB 0 Refills Prov: PRIYANK GONSALEZ MD 01/26/18 Sulfamethoxazole/Trimet 800-160 Mg Tab (BACTRIM DS TABLET) 1 Each Tablet 1 TAB PO Q12H for 10 Days, #20 TAB 0 Refills Prov: PRIYANK GONSALEZ MD 01/26/18 Patient Instructions: Abscess (ED), Abscess Incision and Drainage (GEN), Cellulitis (ED) Additional Instructions: The lower area of your leg had a pocket of pus (abscess) that we could drain today. The upper area of your leg and the area on you labia majora did not have pockets on ultrasound that could be drained today. These areas could develop abscesses and need to be re-evaluated. They may drain on their own or may need to be surgically drained. The area we drained today was packed with packing gauze and needs to be re- evaluated tomorrow and re-packed. Repacking could be needed for several days. [facility], otherwise, you will need to return to the ER for this. Whoever re-evaluates and repacks this tomorrow can give you further directions on when it needs to be re-evaluated. Take Ibuprofen 200mg over the counter tablets, take 4 every 8 hours for pain. Take Lortab 5/325, one every 4 hours as needed for severe pain. Take the antibiotic Bactrim DS twice a day for 10 days. Cultures of the abscess that we drained today will be done. These take 48-72 hours for a final result and will help us determine if we need to change the antibiotics. You should call us if you do not hear back in 72 hours. Apply a heating pad or hot compresses to the area to help bring in blood supply and antibiotics to the infected inflamed tissues. Use the heat for at least 20-30 minutes every hour, but avoid direct contact and getting too hot that it would burn the skin. Return for worsening symptoms such as worsening pain despite using the pain medicines, severe fevers and chills. We will also provide some Zofran 4mg tablets to help with nausea. You can take one of these every 6 hours as needed for nausea. Problem Qualifiers PRIYANK GONSALEZ MD January 26, 2018 04:44
[2018-01-26] MEDS ORDERED: ONDANSETRON 4 MG ODT TABDP SL ONE (05:05)
[2018-01-26] MEDS ORDERED: SULF-198 PO (05:24)
[2018-01-26] MEDS ORDERED: LOR5/325 PO (05:24)
[2018-01-26 05:30] VITALS: BP 121/68
[2018-01-26] MEDS ORDERED: ONDA4TAB PO (05:30)
[2018-01-26] MEDS ORDERED: APAP/HYDROCODONE 325/5 TAB PO ONE (05:35)
[2018-01-26] MEDS ORDERED: ACET/HYDROC 5/325MG TH ER ONLY 2 TAB/BOTTLE PO ONE (05:35)
[2018-01-26] MEDS ORDERED: TRIMETH/SULFA DS 160-800MG TAB PO ONE (05:35)
== END 2018-01-26 05:43 | disposition home or self-care (01) ==
LOC: ER 04:45
DX: N76.4 Abscess of vulva (principal); L02.415 Cutaneous abscess of right lower limb
CPT/HCPCS: 10060; 87070; 87073; 99283; S0119

== ENCOUNTER 2018-01-27 22:30 | Emergency (ER) | payer OTHER ==
[2018-01-07 11:57] VITALS: Wt 83.9 kg
[~2018-01-27 22:30] MED LIST changes: +LOR5/325 PO; +SULF-198 PO
[2018-01-27 22:35] VITALS: BP 108/66
--- NOTE | 2018-01-27 22:35 | ER Report ---
History and Physical Time Seen By MD: 22:35 HPI/ROS CHIEF COMPLAINT: Right thigh abscess recheck HISTORY OF PRESENT ILLNESS: 37 year-old female presents for recheck of abscess in her right thigh that was within incision and drainage with packing placement yesterday. She's been on Bactrim DS for one day. Previous note was reviewed. Allergies: Coded Allergies: Penicillins (Verified Allergy, Intermediate, RASH, 01/27/18) Home Meds Active Scripts Ondansetron (ZOFRAN ODT) 4 Mg Tab.rapdis, 4 MG PO Q6H Y for NAUSEA/VOMITING, # 20 TAB.LAMAR 0 Refills Prov:PRIYANK GONSALEZ MD 01/26/18 Hydrocodone Bit/Acetaminophen (HYDROCODON-ACETAMINOPHEN 5-325) 1 Each Tablet, 1 EACH PO Q4H Y for PAIN, #16 TAB 0 Refills Prov:PRIYANK GONSALEZ MD 01/26/18 Sulfamethoxazole/Trimet 800-160 Mg Tab (BACTRIM DS TABLET) 1 Each Tablet, 1 TAB PO Q12H for 10 Days, #20 TAB 0 Refills Prov:PRIYANK GONSALEZ MD 01/26/18 Reported Medications Diphenhydramine Hcl (DIPHENHYDRAMINE HCL) 25 Mg Capsule, 25 MG PO Q6-8H, CAPSULE 01/07/18 Multivitamin/Iron/Folic Acid (Centrum Adults Tablet) 18 Mg Iron-400 Mcg Tablet, 1 TAB PO QDAY 01/07/18 Ipratropium/Albuterol Sulfate (COMBIVENT RESPIMAT INHAL SPRAY) 4 Gm Aer.w.adap, 1 EACH IH QID Y for SHORTNESS OF BREATH 01/07/18 Ranitidine Hcl (ZANTAC) 150 Mg Tablet, 150 MG PO BID, TAB 01/06/18 Escitalopram Oxalate (ESCITALOPRAM OXALATE) 10 Mg Tablet, 10 MG PO QDAY, TAB 01/06/18 Cetirizine Hcl (ZYRTEC) 10 Mg Tablet, 10 MG PO QDAY, TAB 01/06/18 Zolpidem Tartrate (AMBIEN) 10 Mg Tablet, 1 TAB PO QHS, TAB 01/06/18 Bupropion Hcl (BUPROPION HCL SR) 150 Mg Tablet.er, 150 MG PO QDAY, #10 TAB 01/06/18 Clonazepam (CLONAZEPAM) 0.5 Mg Tab.rapdis, 0.5 MG PO BID, #6 TAB 01/06/18 Norgestimate-Ethinyl Estradiol (MONONESSA) 1 Each Tablet, 1 EACH PO QDAY 01/06/18 Discontinued Reported Medications Ibuprofen (MOTRIN IB) 200 Mg Tablet, 3 TAB PO BID 01/07/18 Discontinued Scripts Hydrocodone Bit/Acetaminophen (NORCO 5-325 TABLET) 1 Each Tablet, 1 EACH PO Q4H Y for PAIN, #30 TAB Prov:BUSHRA GIBBS MD 01/10/18 Ketorolac Tromethamine (KETOROLAC TROMETHAMINE) 10 Mg Tab, 10 MG PO Q6H, #12 TAB Prov:BUSHRA GIBBS MD 01/10/18 Ondansetron (ZOFRAN ODT) 4 Mg Tab.rapdis, 4 MG PO every 6 hours Y for NAUSEA/ VOMITING, #10 TAB TAKE 1 TABLET BY MOUTH EVERY 12 HOURS Prov:WYATT GAO DO 01/06/18 Hydrocodone Bit/Acetaminophen (NORCO 5-325 TABLET) 1 Each Tablet, 1 EACH PO Q4H Y for PAIN, #8 TAB Prov:WYATT GAO DO 01/06/18 Reviewed Nurses Notes: Yes Old Medical Records Reviewed: Yes Hx Smoking: No Hx Substance Use Disorder: No Hx Alcohol Use: Yes (once every three months/none recently) Constitutional Vital Sign - Last 24 Hours 01/27/18 22:35 Temp 97.8 Pulse 73 Resp 18 B/P (MAP) 108/66 Pulse Ox 92 O2 Delivery Room Air Physical Exam General appearance: Alert no distress. Respiratory: Chest is non tender, lungs are clear to auscultation. Cardiac: Regular rate and rhythm Extremities: Left thigh with DIFFERENTIAL DIAGNOSIS: After history and physical exam differential diagnosis was considered for abscess drainage, cellulitis Medical Decision Making ED Course/Re-evaluation ED Course Patient admitted to an examination room. H&P is done. The differential diagnoses was considered. Patient's packing was removed. The wound was palpated. The induration seems less tenths. From what I would expect. The packing was replaced. Patient's advised to have the packing replaced by primary care in one more day and reevaluation completed. Decision to Disposition Date: January 27, 2018 Decision to Disposition Time: 22:52 Depart Departure Latest Vital Signs Vital Signs Date Time Temp Pulse Resp B/P (MAP) Pulse Ox O2 Delivery O2 Flow Rate FiO2 01/27/18 22:35 97.8 73 18 108/66 92 Room Air Impression: Primary Impression: Abscess of right thigh Condition: Improved Disposition: HOME OR SELF-CARE Referrals: MARIA DE JESUS ELAINE MD Patient Instructions: Abscess Follow-up (ED) Additional Instructions: Continue all current therapies. Finish your antibiotic [facility] your right groin abscess and replacement of the packing in your right thigh abscess Can follow-up with general surgeon Dr. Elaine for drainage of your other abscess if it does not resolve in the next 2-3 days WYATT GAO DO January 27, 2018 22:35
== END 2018-01-27 23:08 | disposition home or self-care (01) ==
LOC: ER 22:39
DX: L02.415 Cutaneous abscess of right lower limb (principal)
CPT/HCPCS: 99281